=== PATIENT | male | born 1990 | race Caucasian/White ===

== ENCOUNTER 2018-07-30 10:21 | Inpatient (IN) | payer MEDICAID ==
[2018-07-30 10:27] VITALS: BMI 47.7
[2018-07-30] MEDS ORDERED: Insulin Regular 100 units/ml IVP ONE (10:46)
[2018-07-30] MEDS ORDERED: Sodium Chloride 0.9% 2,000 ML IV STA (10:46)
[2018-07-30] MEDS ORDERED: Insulin Regular 100 units/ml ONE (11:02)
--- NOTE | 2018-07-30 11:07 | RAD ---
Date of service: 07/30/2018 HISTORY: SOB COMPARISON: No prior. FINDINGS: LUNGS: No active pulmonary disease. PLEURA: No significant pleural effusion identified, no pneumothorax apparent. CARDIOVASCULAR: Normal. OSSEOUS STRUCTURES: No significant abnormalities. VISUALIZED UPPER ABDOMEN: Normal. OTHER FINDINGS: None. IMPRESSION: No active disease.
[2018-07-30 11:23] LABS: BASO # 0.1 K/uL (0.0-0.2); BASO % 0.7 % (0.0-2.0); HEMOGLOBIN 16.6 g/dL (12.0-18.0); LYMPH % 10.3 % (20.0-40.0); MEAN CELL VOLUME 83.4 fl (80.0-94.0); MEAN CORPUSCULAR HEMOGLOBIN 28.1 pg (27.0-31.0); MEAN CORPUSCULAR HGB CONC 33.7 g/dL (33.0-37.0); MEAN PLATELET VOLUME 8.3 fl (7.2-11.7); MONO # 0.5 K/uL (0.0-0.8); MONO % 4.6 % (0.0-10.0); NEUT # 8.5 K/uL (1.8-7.0); NEUT % 84.4 % (50.0-75.0); NRBC % 0.1 % (0.0-0.0); RBC 5.9 Mil/uL (4.40-5.90); RED CELL DISTRIBUTION WIDTH 15.6 % (11.5-14.5); WHITE BLOOD COUNT 10.1 K/uL (4.8-10.8)
[2018-07-30 11:34] LABS: RENAL EPITHELIAL < 1 /hpf (0-3); SQUAMOUS EPITHIAL < 1 /hpf (0-5); URINE BILIRUBIN NEGATIVE (NEGATIVE); URINE BLOOD SMALL (NEGATIVE); URINE CLARITY CLEAR (Clear); URINE COLOR STRAW (YELLOW); URINE GLUCOSE (UA) >=500 mg/dL (Normal); URINE LEUKOCYTE ESTERASE NEG Leu/uL (Negative); URINE PROTEIN 100 mg/dL (NEGATIVE); URINE UROBILINOGEN 0.2-1.0 mg/dL (0.2-1.0)
[2018-07-30 11:42] LABS: VENOUS BLOOD GAS BASE EXCESS -21.7 mmol/L (0.0-2.0); VENOUS BLOOD GAS PCO2 24 mmHg (40-60); VENOUS BLOOD GAS PO2 29 mm/Hg (30-55); VENOUS BLOOD PH 7.07 (7.32-7.43)
[2018-07-30] MEDS ORDERED: Glucagon Recombinant 1 mg Inj IM PRN (12:01)
[2018-07-30] MEDS ORDERED: Dextrose 50% SYRINGE Inj (50 ml) IV PRN (12:01)
[2018-07-30 12:04] LABS: ALB/GLOB RATIO 1.1 (1.0-2.1); ALBUMIN 4.2 g/dL (3.5-5.0); ALT/SGPT 22 U/L (21-72); AST/SGOT 18 U/L (17-59); BLOOD UREA NITROGEN 8 mg/dl (9-20); CALCIUM 8.1 mg/dL (8.4-10.2); GFR NON-AFRICAN AMERICAN > 60
[2018-07-30 12:08] LABS: BARBITURATES, UR NEGATIVE (NEGATIVE); BENZODIAZEPINES, UR NEGATIVE (NEGATIVE); OPIATES, UR NEGATIVE (NEGATIVE); PHENCYCLIDINE, UR NEGATIVE (NEGATIVE)
--- NOTE | 2018-07-30 12:25 | ED PDOC ---
HPI: Chest Pain Time Seen by Provider: 07/30/18 10:39 Chief Complaint (Nursing): Chest Pain Chief Complaint (Provider): chest pain, vomiting, dizziness History Per: Patient History/Exam Limitations: clinical condition (poor historian) Onset/Duration Of Symptoms: Gradual (3) Current Symptoms Are (Timing): Still Present Severity: Severe Quality: Burning, Tightness Associated Symptoms: Nausea Modifying Factors: Other Indicated Below Exacerbating Factors: Other Alleviating Factors: None Additional Complaint(s): 28yo male arrives via ALS with c/o chest pain, dizziness and vomiting overnight. States chest pain is burning, central to throat, he believes associated with vomiting. Admits to not having insulin for several days due to lack of insulin (?mail order didnt arrive). Denies recent illness, fever, dysuria, back pain, diarrhea or focal abdominal pain. Past Medical History Reviewed: Historical Data, Nursing Documentation, Vital Signs Vital Signs: Last Vital Signs Temp 97.9 F 08/01/18 11:42 Pulse 123 H 08/01/18 15:51 Resp 28 H 08/01/18 13:59 BP 134/97 H 08/01/18 13:59 Pulse Ox 98 08/01/18 15:51 - Medical History PMH: Asthma, Diabetes, HTN - Surgical History Surgical History: Tonsillectomy - Family History Family History: States: Unknown Family Hx - Living Arrangements Living Arrangements: With Family - Social History Current smoker - smoking cessation education provided: No - Home Medications Home Medications: Ambulatory Orders Medication Instructions Recorded Insulin Glargine,Hum.rec.anlog 24 unit SC DAILY 07/30/18 [Basaglar Fengpen U-100] Losartan [Cozaar] 50 mg PO DAILY 07/30/18 MetFORMIN [glucoPHAGE] 1,000 mg PO BID 07/30/18 Metoprolol Succinate XL [Toprol XL] 50 mg PO DAILY 07/30/18 Multivitamin [Multi-Vitamin Daily] 1 tab PO DAILY 07/30/18 Paliperidone Palmitate [Invega 234 mg IM Q30D 07/30/18 Sustenna] Rosuvastatin Calcium [Crestor] 10 mg PO DAILY 07/30/18 SITagliptin [Januvia] 50 mg PO DAILY 07/30/18 Sertraline [Zoloft] 200 mg PO DAILY 07/30/18 amLODIPine [Norvasc] 5 mg PO DAILY 07/30/18 buPROPion XL [Wellbutrin XL] 300 mg PO DAILY 07/30/18 - Allergies Allergies/Adverse Reactions: Allergies Allergy/AdvReac Type Severity Reaction Status Date / Time Penicillins Allergy RASH Verified 07/30/18 10:39 Review of Systems Constitutional: Positive for: Weakness, Malaise Cardiovascular: Positive for: Chest Pain, Palpitations, Light Headedness Respiratory: Negative for: Cough, Shortness of Breath Gastrointestinal: Positive for: Nausea, Vomiting. Negative for: Abdominal Pain , Diarrhea Genitourinary Male: Negative for: Dysuria, Hematuria Musculoskeletal: Negative for: Neck Pain, Arm Pain, Back Pain, Leg Pain Skin: Negative for: Rash, Lesions, Jaundice Neurological: Positive for: Headache, Dizziness. Negative for: Weakness, Numbness Psych: Negative for: Suicidal ideation Physical Exam - Reviewed Nursing Documentation Reviewed: Yes Vital Signs Reviewed: Yes - Physical Exam Appears: Positive for: Non-toxic (kussmaul resp) Head Exam: Positive for: ATRAUMATIC, NORMAL INSPECTION, NORMOCEPHALIC Skin: Positive for: Normal Color, Warm, DRY Eye Exam: Positive for: EOMI, Normal appearance, PERRL ENT: Positive for: Normal ENT Inspection Neck: Positive for: Normal, Painless ROM Cardiovascular/Chest: Positive for: Tachycardia Respiratory: Positive for: Normal Breath Sounds. Negative for: Decreased Breath Sounds Gastrointestinal/Abdominal: Positive for: Soft. Negative for: Tenderness Back: Positive for: Normal Inspection Extremity: Positive for: Normal ROM. Negative for: Tenderness, Deformity, Swelling Neurologic/Psych: Positive for: Alert, Oriented. Negative for: Motor/Sensory Deficits - Laboratory Results Result Diagrams: 07/31/18 04:40 08/01/18 11:04 - ECG ECG: Positive for: Interpreted By Tn ECG Rhythm: Positive for: Sinus Tachycardia, Nonspecific Changes Rate: 123 O2 Sat by Pulse Oximetry: 98 Pulse Ox Interpretation: Normal - Radiology X-Ray: Interpreted by Tn X-Ray Interpretation: No Acute Disease - Critical Care Total Time (In Min): 45 Medical Decision Making Medical Decision Making: initial diagnostics and clinical appearance concerning for acute DKA, likely secondary to noncompliance w meds/ ran out of insulin IVF bolus initiated, metabolics revealed elev AG with acidosis. Insulin drip initiated HR gradually improved, tachypnea improved Admit ICU d/w ICU and admitting team Disposition - Clinical Impression Clinical Impression: DKA (diabetic ketoacidoses) - Patient ED Disposition Is Patient to be Admitted: Yes - Disposition Disposition Time: 11:55 Condition: FAIR - Pt Status Changed To: Hospital Disposition Of: Inpatient - Admit Certification Admit to Inpatient:: After my assessment, the patient will require hospitalization for at least two midnights. This is because of the severity of symptoms shown, intensity of services needed, and/or the medical risk in this patient being treated as an outpatient. - POA Present On Arrival: Poor Glycemic Control
--- NOTE | 2018-07-30 13:20 | CP.PCM.HP ---
History of Present Illness - History of Present Illness History of Present Illness: 28 yo male with history of HTN, Asthma and newly diagnosed DM2 came in because of abdominal pain, vomiting, sorethroat, polyuria and polydipsia since yesterday. He claimed he was not able to inject himself with insulin for 3 days since he was not able to fill up his prescriptions. Denied having fever, chills or chest pain. Present on Admission - Present on Admission Any Indicators Present on Admission: No History of DVT/PE: No History of Uncontrolled Diabetes: No Urinary Catheter: No Decubitus Ulcer Present: No Review of Systems - Review of Systems All systems: reviewed and no additional remarkable complaints except (aside from those mentioned above, 12 point system review were negative by me) Past Patient History - Tetanus Immunizations Tetanus Immunization: Unknown - Past Social History Smoking Status: Former Smoker Chewing Tobacco Use: No Cigar Use: No Alcohol: None Drugs: Denies Home Situation {Lives}: With Family - CARDIAC Hx Hypertension: Yes - PULMONARY Hx Asthma: Yes - ENDOCRINE/METABOLIC Hx Diabetes Mellitus Type 2: Yes - PSYCHIATRIC Hx Substance Use: No - SURGICAL HISTORY Hx Tonsillectomy: Yes - ANESTHESIA Hx Anesthesia: Yes Hx Anesthesia Reactions: No Meds Allergies/Adverse Reactions: Allergies Allergy/AdvReac Type Severity Reaction Status Date / Time Penicillins Allergy RASH Verified 07/30/18 10:39 Physical Exam - Constitutional Appears: No Acute Distress, Other (obese) - Head Exam Head Exam: ATRAUMATIC - Eye Exam Eye Exam: absent: Scleral icterus - ENT Exam ENT Exam: Mucous Membranes Dry - Neck Exam Neck exam: Negative for: Meningismus - Respiratory Exam Respiratory Exam: absent: Rales, Rhonchi, Respiratory Distress - Cardiovascular Exam Cardiovascular Exam: Tachycardia - GI/Abdominal Exam GI & Abdominal Exam: Soft. absent: Tenderness - Rectal Exam Rectal Exam: Deferred - Extremities Exam Extremities exam: Negative for: calf tenderness, pedal edema - Back Exam Back exam: NORMAL INSPECTION - Neurological Exam Neurological exam: Alert, Oriented x3 - Psychiatric Exam Psychiatric exam: Normal Affect - Skin Skin Exam: Dry, Intact Results - Vital Signs Recent Vital Signs: Last Vital Signs Temp 97.9 F 07/30/18 10:27 Pulse 110 H 07/30/18 12:21 Resp 19 07/30/18 12:21 BP 128/66 07/30/18 12:21 Pulse Ox 98 07/30/18 12:37 - Labs Result Diagrams: 07/30/18 11:18 07/30/18 11:18 Labs: Laboratory Results - last 24 hr 07/30/18 07/30/18 07/30/18 11:18 11:18 11:18 WBC 10.1 RBC 5.90 Hgb 16.6 Hct 49.2 MCV 83.4 MCH 28.1 MCHC 33.7 RDW 15.6 H Plt Count 233 MPV 8.3 Neut % (Auto) 84.4 H Lymph % (Auto) 10.3 L Randall % (Auto) 4.6 Eos % (Auto) 0.0 Baso % (Auto) 0.7 Neut # (Auto) 8.5 H Lymph # (Auto) 1.0 Randall # (Auto) 0.5 Eos # (Auto) 0.0 Baso # (Auto) 0.1 pO2 VBG pH VBG pCO2 VBG HCO3 VBG Total CO2 VBG O2 Sat (Calc) VBG Base Excess VBG Potassium Glucose Lactate FiO2 Crit Value Called To Crit Value Called By Crit Value Read Back Blood Gas Notified Time Sodium 136 Potassium 3.6 Chloride 103 Carbon Dioxide 6 L* Anion Gap 31 H BUN 8 L Creatinine 0.9 Est GFR ( Amer) > 60 Est GFR (Non-Af Amer) > 60 Random Glucose 556 H* Calcium 8.1 L Total Bilirubin 0.5 AST 18 ALT 22 Alkaline Phosphatase 161 H Troponin I < 0.0120 Total Protein 7.9 Albumin 4.2 Globulin 3.7 Albumin/Globulin Ratio 1.1 Venous Blood Potassium Urine Color Urine Clarity Urine pH Ur Specific [place] Urine Protein Urine Glucose (UA) Urine Ketones Urine Blood Urine Nitrate Urine Bilirubin Urine Urobilinogen Ur Leukocyte Esterase Urine RBC (Auto) Urine Microscopic WBC Ur Squamous Epith Cells Ur Renal Epithelial Cell Urine Opiates Screen Negative Urine Methadone Screen Negative Ur Barbiturates Screen Negative Ur Phencyclidine Scrn Negative Ur Amphetamines Screen Negative U Benzodiazepines Scrn Negative U Oth Cocaine Metabols Negative U Cannabinoids Screen Negative Alcohol, Quantitative < 10 07/30/18 07/30/18 11:18 11:25 WBC RBC Hgb Hct MCV MCH MCHC RDW Plt Count MPV Neut % (Auto) Lymph % (Auto) Randall % (Auto) Eos % (Auto) Baso % (Auto) Neut # (Auto) Lymph # (Auto) Randall # (Auto) Eos # (Auto) Baso # (Auto) pO2 29 L VBG pH 7.07 L* VBG pCO2 24 L VBG HCO3 6.2 VBG Total CO2 7.7 L VBG O2 Sat (Calc) 60.8 VBG Base Excess -21.7 L VBG Potassium 3.6 Glucose 561 H* Lactate 1.7 FiO2 21.0 Crit Value Called To Dr olivia dumont Crit Value Called By 23 Crit Value Read Back Y Blood Gas Notified Time 1140 Sodium 132.0 Potassium Chloride 96.0 L Carbon Dioxide Anion Gap BUN Creatinine Est GFR ( Amer) Est GFR (Non-Af Amer) Random Glucose Calcium Total Bilirubin AST ALT Alkaline Phosphatase Troponin I Total Protein Albumin Globulin Albumin/Globulin Ratio Venous Blood Potassium 3.6 Urine Color Straw Urine Clarity Clear Urine pH 6.0 Ur Specific [place] 1.026 Urine Protein 100 Urine Glucose (UA) >=500 Urine Ketones 80 Urine Blood Small Urine Nitrate Negative Urine Bilirubin Negative Urine Urobilinogen 0.2-1.0 Ur Leukocyte Esterase Neg Urine RBC (Auto) 3 Urine Microscopic WBC 1 Ur Squamous Epith Cells < 1 Ur Renal Epithelial Cell < 1 Urine Opiates Screen Urine Methadone Screen Ur Barbiturates Screen Ur Phencyclidine Scrn Ur Amphetamines Screen U Benzodiazepines Scrn U Oth Cocaine Metabols U Cannabinoids Screen Alcohol, Quantitative Assessment & Plan - Assessment and Plan (Free Text) Assessment: 28 yo male with history of HTN, Asthma and newly diagnosed DM2 came in because of abdominal pain, vomiting, sorethroat, polyuria and polydipsia since yesterday. He claimed he was not able to inject himself with insulin for 3 days since he was not able to fill up his prescriptions. Denied having fever, chills or chest pain. 1. DKA acchuchek every 2 hrs continue Insulin drip 10 units/hr continue IV hydration 250cc/hr DC insulin drips when accuchek or BS goes down below 300 BS below 300, accuchek q 4hrs with moderate dose Lispro coverage BMP in 4 hrs endocrinology consult with Dr Funez 2. HTN BP stable will hold Amlodipine, Losartan and Metoprolol until DKA is controlled 3. Asthma asymptomatic 4. DVT prophylaxis Lovenox 40mg SC daily
[2018-07-30] MEDS: Sodium Chloride 0.9% 1,000 ML IV SCH ×2 (13:29→16:08)
[2018-07-30] MEDS ORDERED: Dextrose 5%/0.45% NS 1,000 ML IV SCH (17:30)
--- NOTE | 2018-07-30 18:32 | CP.CCUPN ---
CCU Subjective - Physician Review Subjective (Free Text): 28M admitted in DKA for the 1st time, newly dxed DM II starting 3 months ago, spent very short time on oral hypoglycemic and advanced to long-acting insulin as per PMD at 24 Units QD. Denies any other recent illness, otherwise , feels hungry, no other new discomfort, feels thirsty. Other vitals and I/O's reviewed: Afebrile, HR 104, 139/86, RR 30, 100% SPo2 on RA. ROS: No other pertinent negs or positives on 10+ system review obtainable from patient due to poorly responsive state. PMSFH: All other Nursing and physician documentation reviewed to date; no new pertinent info noted relevant to current medical problems. Allergies: penicillin SH; Non-employed, underwent special education classification in school, quit smoking 3 months ago, denies ETOH use. Home Meds: Invega, Norvasc, Wellbutrin, Cozaar, metformin, Toprol, MVI, Crestor , Zoloft, Januvia, Glargine insulin. EXAM- HEENT: no icterus, no gaze preference NECK: No JVD visible, supple, carotids equal upstroke bilat CHEST: decreased BS bases, no wheezes audible HEART: irregular, distant, S1S2, no rubs / murmurs ABD: soft, no increased distention, no tympany, no focal tenderness, BS hypoactive EXT: no peripheral/ digital cyanosis, no calf tenderness or palpable cords, distal pulses intact and symmetrical. NEURO: no gross focal deficits SKIN: no rashes, otherwise warm and dry. LABS: WBC= 10.1 HGB= 16.6 PLTs= 233K 7.07/ VBG SvO2= 60.8% lactate= 5.1 Vl=651 K= 3.6 CL= 103 HCO3= 6 BUN/Cr= 8/0.9 BS= 556 CXR: clear, no gross consolidation, no congestion (my interp). EKG: sinus tachy 123/min, no ischemic changes ( my interp) IMPRESSION / MAJOR PROBLEMS NOW: 1. DKA 2. New onset DM II 3. HTN 4. Obesity PLAN: 1. ICU monitoring as BS levels come under control. IVFs and insulin drip until anion gap normalizes. Check repeat K, Mg, Phos. Endocrinology eval, last HGB A1c as known by patient is 8.5% CCU Objective - Vital Signs / Intake & Output Vital Signs (Last 4 hours): Vital Signs Temp Pulse Resp BP Pulse Ox 07/30/18 18:00 104 H 30 H 139/86 100 07/30/18 17:00 105 H 35 H 131/75 98 07/30/18 16:00 98 F 108 H 38 H 133/69 100 07/30/18 15:32 120 H 28 H 143/83 100 07/30/18 15:21 36 H 100 07/30/18 15:10 98.2 F 114 H 34 H 132/84 100 07/30/18 14:50 97 F L 78 19 128/78 98 07/30/18 14:47 97.8 F 19 130/70 Intake and Output (Last 8hrs): Intake & Output 07/30/18 07/30/18 07/30/18 06:59 14:59 22:59 Intake Total 750 Output Total 750 Balance 0 Weight 342 lb 319 lb Intake: IV 750 Output: Urine 750 Urine, Voided 750
[2018-07-30] MEDS: Potassium Ch 20mEq in D5-1/2NS 1,000 ML IV SCH ×2 (18:40→23:00)
[2018-07-30 22:30] LABS: BLOOD UREA NITROGEN 5 mg/dl (9-20); GFR NON-AFRICAN AMERICAN > 60
--- NOTE | 2018-07-30 22:48 | CARD ---
APPROVED REPORT Date of service: 07/30/2018 EKG Measurement Heart [id number] <Conclusion> Sinus tachycardia Otherwise normal ECG
[2018-07-30] MEDS ORDERED: Potassium Phosphate 30 MMOLE in Sodium Chloride 0.9% 250 ML IV ONE (23:02)
--- NOTE | 2018-07-31 03:30 | CON ---
Copied To: Kenzie Funez MD Attending MD: Kenzie Funez MD DATE: 07/30/2018 ENDOCRINOLOGY CONSULT LOCATION: ICU, room 428. HISTORY OF PRESENT ILLNESS: This is a 28-year-old male with known history of type 1 insulin-dependent diabetes who apparently ran out of his insulin supplies and presented here with chest pain and progressive dizziness and lightheadedness with supervening intractable vomiting and has been evaluated to be in diabetic ketoacidosis and dehydration and is being referred now for diabetic evaluation and management. He apparently ran out of his insulin supplies as his mail order did not come in time as noted. PAST MEDICAL HISTORY: History of type 1 insulin-dependent diabetes, currently on a combination of taken as 24 units subcu daily with Januvia given as 50 mg daily and metformin as 1000 mg b.i.d.; history of hypertension and dyslipidemia; history of chronic bronchial asthma. FAMILY HISTORY: Positive for hypertension and diabetes. SOCIAL HISTORY The patient has a supportive family. No known substance use. REVIEW OF SYSTEMS Admits to generalized body weakness with progressive bouts of dizziness and lightheadedness and visual blurring with bifrontal headaches. Admits to precordial chest pain as mentioned with progressive shortness of of breath, especially on exertion. His oral intake has been variable with nausea, dyspepsia, and intractable vomiting episodes with marked polyuria, nocturia, and polydipsia. PHYSICAL EXAMINATION: GENERAL: This is an obese male in no apparent distress. VITAL SIGNS: Blood pressure of 140/80, pulse of 100 beats per minute and regular, temperature 98, respirations 20, height is 5 feet 11 inches, weight is 342 pounds. HEENT: Head normocephalic. Eyes anicteric with pink conjunctivae. Funduscopy not possible at this time. Ears, nose and throat, otherwise, normal. NECK: Supple. Thyroid gland is normal in size. No carotid bruits or cervical adenopathy. CARDIOPULMONARY: Some adynamic precordium. S1, S2 rapid and regular. LUNGS: Clear to auscultation. ABDOMEN: Obese, soft with positive bowel sounds. EXTREMITIES: No peripheral edema. Pulses are +2 bilaterally. LABORATORY DATA: His initial chemistries showed a BUN of 8, sodium 136, potassium 3.6, chloride 103, CO2 is 6, glucose is 556, and creatinine is 0.9. ASSESSMENT: This is a 28-year-old male with apparent known history of type 2 diabetes, presenting here with metabolic behavioral pattern, typical of type 1 diabetes with diabetic ketoacidosis and dehydration as noted thereof. He also has underlying super morbid obesity which is contributing to increased insulin resistance and further impaired glucose tolerance thereof. PLAN OF MANAGEMENT: We will continue the insulin drip infusion with intensive insulin therapy given via an insulin drip with hourly fingersticks to be undertaken and Humalog insulin and regular insulin drip as given continuously. We will also continue the vigorous IV hydration with normal saline running at 200 mL/hour to replenish his lost fluid and electrolyte levels noted. We will obtain serial chemistries and supplement accordingly needed. Improve the CO2 to at least above 18 to 20, then we can safely switch him over to a more physiologic basal and bolus insulin drug combination as indicated, and we will discontinue the insulin drip accordingly. We will continue the vigorous IV hydration with normal saline running at 200 mL/hour as ordered. We will obtain serial chemistries and supplement accordingly needed. We will also add a serum cortisol and baseline thyroid studies as ordered. We will follow up. Kenzie Funez MD
[2018-07-31] MEDS ORDERED: Alum-Mag Hydrox-Simethicone Susp (30 mL) PO ONE (04:10)
[2018-07-31 05:33] LABS: BASO # 0.1 K/uL (0.0-0.2); BASO % 0.8 % (0.0-2.0); EOS % 0.5 % (0.0-4.0); HEMOGLOBIN 14.9 g/dL (12.0-18.0); LYMPH # 1.2 K/uL (1.0-4.3); LYMPH % 16.3 % (20.0-40.0); MEAN CELL VOLUME 82.1 fl (80.0-94.0); MEAN CORPUSCULAR HGB CONC 34.1 g/dL (33.0-37.0); MONO # 0.6 K/uL (0.0-0.8); MONO % 8.8 % (0.0-10.0); NEUT # 5.3 K/uL (1.8-7.0); NEUT % 73.6 % (50.0-75.0); NRBC % 0.4 % (0.0-0.0); RBC 5.3 Mil/uL (4.40-5.90); RED CELL DISTRIBUTION WIDTH 15.4 % (11.5-14.5); WHITE BLOOD COUNT 7.2 K/uL (4.8-10.8)
[2018-07-31 05:44] LABS: LDL CHOLESTEROL 134 mg/dL (0-129)
[2018-07-31 06:19] LABS: ALB/GLOB RATIO 1.2 (1.0-2.1); ALBUMIN 3.6 g/dL (3.5-5.0); BLOOD UREA NITROGEN 5 mg/dl (9-20); CALCIUM 8.2 mg/dL (8.4-10.2); GFR NON-AFRICAN AMERICAN > 60
[2018-07-31 06:20] LABS: ALT/SGPT 22 U/L (21-72); AST/SGOT 14 U/L (17-59); HDL CHOLESTEROL 23 MG/DL (30-70)
[2018-07-31] MEDS ORDERED: Potassium Chloride 20 mEq/15 ml LIQ UD PO ONE ×3 (06:53→19:30)
[2018-07-31] MEDS: Potassium CL 10mEq/100ml 100 ML IVPB SCH ×4 (07:32→10:59)
[2018-07-31] MEDS: Potassium Ch 20mEq in D5-1/2NS 1,000 ML IV SCH ×2 (07:39→15:37)
[2018-07-31] MEDS ORDERED: Pneumococcal 23-Valent Vaccine IM ONE (07:48)
[2018-07-31] MEDS: Enoxaparin 40 mg Syringe SC SCH (08:22)
--- NOTE | 2018-07-31 08:40 | CP.CCUPN ---
CCU Subjective - Physician Review Subjective (Free Text): Fells weak, but was able to get OOB to chair, on Insulin at 4 units/hr, and IVF at 200ml/hr. Otherwise, nondistressed and intact neuromental status. Other vitals and I/O's reviewed: ROS: No other pertinent negs or positives on 10+ system review. PMSFH: All other Nursing and physician documentation reviewed to date; no new pertinent info noted relevant to current medical problems. Allergies: penicillin SH; Non-employed, underwent special education classification in school, quit smoking 3 months ago, denies ETOH use. Home Meds: Invega, Norvasc, Wellbutrin, Cozaar, metformin, Toprol, MVI, Crestor , Zoloft, Januvia, Glargine insulin. EXAM- HEENT: no icterus, no gaze preference NECK: No JVD visible, supple, carotids equal upstroke bilat CHEST: decreased BS bases, no wheezes audible HEART: irregular, distant, S1S2, no rubs / murmurs ABD: soft, no increased distention, no tympany, no focal tenderness, BS hypoactive EXT: no peripheral/ digital cyanosis, no calf tenderness or palpable cords, distal pulses intact and symmetrical. NEURO: no gross focal deficits SKIN: no rashes, otherwise warm and dry. LABS: WBC= 7.2 HGB= 14.9 PLTs= 201K Ca=978 K= 2.8 CL= 114 HCO3= 11 BUN/Cr= 5/0.7 BS= 274 IMPRESSION / MAJOR PROBLEMS NOW: 1. DKA 2. New onset DM II 3. HTN 4. Obesity PLAN: 1. Ongoing IVFs and insulin drip, serum bicarb has not yet normalized. 2. K and phosphate repletion 3. Endocrine eval already ordered. 4. PO diet started. CCU Objective - Vital Signs / Intake & Output Vital Signs (Last 4 hours): Vital Signs Temp Pulse Resp BP Pulse Ox 07/31/18 08:00 98.4 F 119 H 25 H 128/66 99 07/31/18 06:00 104 H 25 H 127/70 94 L 07/31/18 05:00 105 H 28 H 133/56 L 99 Intake and Output (Last 8hrs): Intake & Output 07/30/18 07/31/18 07/31/18 22:59 06:59 14:59 Intake Total 1250 1600 60 Output Total 1500 1600 800 Balance -250 0 -740 Weight 319 lb Intake: IV 1100 1400 Oral 150 200 60 Output: Urine 1500 800 800 Urine, Voided 1500 800 800 Stool 800 Critical Care Progress Note - Nutrition Nutrition: .
[2018-07-31] MEDS ORDERED: Metoprolol Succinate 50 mg XL Tab PO SCH (09:00)
--- NOTE | 2018-07-31 11:49 | CP.PCM.PN ---
<Larry Toro - Last Filed: 07/31/18 16:56> Subjective - Date & Time of Evaluation Date of Evaluation: 07/31/18 Time of Evaluation: 11:46 - Subjective Subjective: Patient lying in bed, appears uncomfortable complaining of nausea. No appetite, no abdominal pain. No bowel movement for past 3 days. No fevers, night sweats or chills. Breathing unlabored. Objective - Vital Signs/Intake and Output Vital Signs (last 24 hours): Temp Pulse Resp BP Pulse Ox 98.4 F 98 H 22 124/68 98 07/31/18 08:00 07/31/18 10:00 07/31/18 10:00 07/31/18 10:00 07/31/18 10:00 Intake and Output: 07/31/18 07/31/18 06:59 18:59 Intake Total 2100 100 Output Total 2350 800 Balance -250 -700 - Medications Medications: Current Medications Dextrose (Dextrose 50% Inj) 0 ml IV STAT PRN; Protocol PRN Reason: Hypoglycemia Protocol Dextrose (Glutose 15) 0 gm PO ONCE PRN; Protocol PRN Reason: Hypoglycemia Protocol Enoxaparin Sodium (Lovenox) 40 mg SC DAILY [facility] PRN Reason: Protocol Last Admin: 07/31/18 08:22 Dose: 40 mg Glucagon (Glucagen Diagnostic Kit) 0 mg IM STAT PRN; Protocol PRN Reason: Hypoglycemia Protocol Insulin Human Regular 100 (units/ Sodium Chloride) 101 mls @ 10.1 mls/hr IV .Q10H [facility]; 10 UNITS/HR PRN Reason: Protocol Last Titration: 07/31/18 10:11 Dose: 6 units/hr, 6.06 mls/hr Potassium Chloride/Dextrose/Sod Cl (Potassium Chl 20 Meq In D5-1/2ns) 1,000 mls @ 200 mls/hr IV .Q5H [facility] Stop: 07/31/18 17:24 Last Admin: 07/31/18 07:39 Dose: 200 mls/hr Ondansetron HCl (Zofran Inj) 4 mg IVP Q6H PRN PRN Reason: Nausea/Vomiting Pantoprazole Sodium (Protonix Inj) 40 mg IVP DAILY [facility] Last Admin: 07/31/18 08:24 Dose: 40 mg - Labs Labs: 07/31/18 04:40 07/31/18 04:40 - Constitutional Appears: No Acute Distress - Head Exam Head Exam: ATRAUMATIC, NORMAL INSPECTION, NORMOCEPHALIC - Eye Exam Eye Exam: Normal appearance - Respiratory Exam Respiratory Exam: Clear to Ausculation Bilateral, NORMAL BREATHING PATTERN. absent: Prolonged Expiratory Phase, Respiratory Distress - Cardiovascular Exam Cardiovascular Exam: REGULAR RHYTHM, +S1, +S2. absent: Murmur - GI/Abdominal Exam GI & Abdominal Exam: Soft, Hypoactive Bowel Sounds. absent: Distended, Guarding , Tenderness - Extremities Exam Extremities Exam: Normal Inspection. absent: Pedal Edema - Neurological Exam Neurological Exam: Alert, Awake - Skin Skin Exam: Dry, Intact, Normal Color Assessment and Plan - Assessment and Plan (Free Text) Assessment: 28 yo male with history of HTN, Asthma and newly diagnosed DM2 came in because of abdominal pain, vomiting, sorethroat, polyuria and polydipsia since yesterday admitted for DKA. He claimed he was not able to inject himself with insulin for 3 days since he was not able to fill up his prescriptions. No night sweats, fevers, chills. C/o nausea, without vomiting. #. DKA anion gap 15 hga1c: 14.7 acchuchek every 2 hrs continue Insulin drip 10 units/hr continue IV hydration : d/c NS 250cc/hr start D5 1/2 NS with K+ 20meq will d/c insulin drip once anion gap closed once BS below 300, accuchek q 4hrs with moderate dose Lispro coverage repeat BMP in afternoon endocrinology consult with Dr Funez #.Hypokalemia -due to acidosis -IV and PO potassium -recheck BMP in afternoon #. HTN BP stable will hold Amlodipine, Losartan and Metoprolol until DKA is controlled 3. Asthma asymptomatic 4. DVT prophylaxis Lovenox 40mg SC daily <Erendira Chang - Last Filed: 07/31/18 17:38> Objective - Vital Signs/Intake and Output Vital Signs (last 24 hours): Temp Pulse Resp BP Pulse Ox 97.5 F L 99 H 18 140/76 98 07/31/18 16:00 07/31/18 16:00 07/31/18 16:00 07/31/18 16:00 07/31/18 16:00 Intake and Output: 07/31/18 07/31/18 06:59 18:59 Intake Total 2100 763 Output Total 6053 1999 Balance -994 -1440 - Medications Medications: Current Medications Dextrose (Dextrose 50% Inj) 0 ml IV STAT PRN; Protocol PRN Reason: Hypoglycemia Protocol Dextrose (Glutose 15) 0 gm PO ONCE PRN; Protocol PRN Reason: Hypoglycemia Protocol Enoxaparin Sodium (Lovenox) 40 mg SC DAILY [facility] PRN Reason: Protocol Last Admin: 07/31/18 08:22 Dose: 40 mg Glucagon (Glucagen Diagnostic Kit) 0 mg IM STAT PRN; Protocol PRN Reason: Hypoglycemia Protocol Insulin Human Regular 100 (units/ Sodium Chloride) 101 mls @ 10.1 mls/hr IV .Q10H [facility]; 10 UNITS/HR PRN Reason: Protocol Last Titration: 07/31/18 17:05 Dose: 6 units/hr, 6.06 mls/hr Potassium Phosphate 30 mmole/ (Dextrose) 260 mls @ 84 mls/hr IV .Q3H6M ONE Stop: 07/31/18 19:31 Ondansetron HCl (Zofran Inj) 4 mg IVP Q6H PRN PRN Reason: Nausea/Vomiting Pantoprazole Sodium (Protonix Inj) 40 mg IVP DAILY [facility] Last Admin: 07/31/18 08:24 Dose: 40 mg Potassium Chloride (Potassium Chloride Oral Soln) 20 meq PO ONCE ONE Stop: 07/31/18 19:31 - Labs Labs: 07/31/18 04:40 07/31/18 15:00 Attending/Attestation - Attestation I have personally seen and examined this patient.: Yes I have fully participated in the care of the patient.: Yes I have reviewed all pertinent clinical information, including history, physical exam and plan: Yes Notes (Text): 07/31/18 17:38 Seen, examined, and discussed with residents Dr. Toro. Agree with findings and plan as above.
[2018-07-31 16:15] LABS: BLOOD UREA NITROGEN 3 mg/dl (9-20); CALCIUM 8.4 mg/dL (8.4-10.2); GFR NON-AFRICAN AMERICAN > 60
[2018-07-31] MEDS ORDERED: Potassium Phosphate 30 MMOLE in Dextrose 5% In Water 250 ML IV ONE (16:26)
[2018-07-31 21:12] LABS: BLOOD UREA NITROGEN 3 mg/dl (9-20); CALCIUM 8.3 mg/dL (8.4-10.2); GFR NON-AFRICAN AMERICAN > 60
--- NOTE | 2018-07-31 21:33 | PN ---
Copied To: Kenzie Funez MD Attending MD: Kenzie Funez MD DATE: 07/31/2018 This is a 28-year-old male with recent uncontrolled type 1 insulin-dependent diabetes, presenting here with diabetic ketoacidosis and dehydration and is now being followed closely for metabolic management. As per the nursing staff, he has had marked dietary indiscretion with intake of [place] food and other goodies from home as brought in by the grandmother over the last 24 hours or so. His glycemic levels are fluctuating, ranging from 285 to 336 mg/dL. His latest chemistry showed a BUN of 3, sodium 136, potassium 3, chloride 110, CO2 of 10, glucose is 366, and creatinine 0.7. So at this time, we will continue the insulin drip infusion and titrate to a higher algorithm to DKA algorithm II, and we will discuss with the nursing staff accordingly. We will continue the vigorous IV hydration with half-normal saline with potassium supplementation running at 200 mL/hour as ordered. We will obtain serial chemistries and supplement accordingly as needed. We will follow and advised accordingly. Kenzie Funez MD
[2018-08-01] MEDS ORDERED: Potassium Chloride 20 MEQ in Sodium Chloride 0.45% 1,000 ML IV SCH (00:15)
[2018-08-01] MEDS: Potassium Chl 20 mEq in NS 1,000 ML IV SCH ×3 (00:30→23:02)
[2018-08-01 06:56] LABS: ALB/GLOB RATIO 1.2 (1.0-2.1); ALBUMIN 3.4 g/dL (3.5-5.0); ALT/SGPT 23 U/L (21-72); AST/SGOT 16 U/L (17-59); BLOOD UREA NITROGEN 2 mg/dl (9-20); CALCIUM 8.5 mg/dL (8.4-10.2); GFR NON-AFRICAN AMERICAN > 60
[2018-08-01] MEDS ORDERED: Potassium Chloride 20 mEq ER Tab PO ONE (07:32)
--- NOTE | 2018-08-01 08:02 | CP.PCM.PN ---
<Larry Toro - Last Filed: 08/01/18 10:38> Subjective - Date & Time of Evaluation Date of Evaluation: 08/01/18 Time of Evaluation: 07:45 - Subjective Subjective: Overnight K+: 2.8 This AM: K+ 2.4 EKG, potassium ordered stat Patient lying in bed comfortably. No complaints offered. Tolerating diet. Anion gap now 11, will d/c insulin drip Objective - Vital Signs/Intake and Output Vital Signs (last 24 hours): Temp Pulse Resp BP Pulse Ox 98.4 F 91 H 24 126/57 L 93 L 08/01/18 04:00 08/01/18 06:00 08/01/18 06:00 08/01/18 06:00 08/01/18 06:00 Intake and Output: 08/01/18 08/01/18 06:59 18:59 Output Total 450 Balance -450 - Medications Medications: Current Medications Dextrose (Dextrose 50% Inj) 0 ml IV STAT PRN; Protocol PRN Reason: Hypoglycemia Protocol Dextrose (Glutose 15) 0 gm PO ONCE PRN; Protocol PRN Reason: Hypoglycemia Protocol Enoxaparin Sodium (Lovenox) 40 mg SC DAILY [facility] PRN Reason: Protocol Last Admin: 07/31/18 08:22 Dose: 40 mg Glucagon (Glucagen Diagnostic Kit) 0 mg IM STAT PRN; Protocol PRN Reason: Hypoglycemia Protocol Insulin Human Regular 100 (units/ Sodium Chloride) 101 mls @ 10.1 mls/hr IV .Q10H [facility]; 10 UNITS/HR PRN Reason: Protocol Last Titration: 07/31/18 17:05 Dose: 6 units/hr, 6.06 mls/hr Potassium Chloride/Sodium Chloride (Potassium Chl 20 Meq In Ns) 1,000 mls @ 200 mls/hr IV .Q5H [facility] Stop: 08/02/18 00:16 Last Admin: 08/01/18 00:30 Dose: 200 mls/hr Potassium Chloride (Potassium Chloride 10 Meq/100 Ml) 100 mls @ 100 mls/hr IVPB Q1 [facility] Stop: 08/01/18 11:59 Ondansetron HCl (Zofran Inj) 4 mg IVP Q6H PRN PRN Reason: Nausea/Vomiting Pantoprazole Sodium (Protonix Inj) 40 mg IVP DAILY [facility] Last Admin: 07/31/18 08:24 Dose: 40 mg - Labs Labs: 07/31/18 04:40 08/01/18 04:40 - Constitutional Appears: Non-toxic, No Acute Distress (morbid obese) - Head Exam Head Exam: ATRAUMATIC, NORMAL INSPECTION, NORMOCEPHALIC - Eye Exam Eye Exam: Normal appearance - Respiratory Exam Respiratory Exam: NORMAL BREATHING PATTERN - Cardiovascular Exam Cardiovascular Exam: REGULAR RHYTHM, +S1, +S2 - GI/Abdominal Exam GI & Abdominal Exam: Soft (no distention, no tenderness) - Extremities Exam Extremities Exam: Normal Inspection (no pedal edema) - Neurological Exam Neurological Exam: Alert, Awake - Skin Skin Exam: Dry, Intact, Normal Color, Warm Assessment and Plan - Assessment and Plan (Free Text) Plan: 28 yo male with history of HTN, Asthma and newly diagnosed DM2 came in because of abdominal pain, vomiting, sorethroat, polyuria and polydipsia since yesterday admitted for DKA. He claimed he was not able to inject himself with insulin for 3 days since he was not able to fill up his prescriptions. No night sweats, fevers, chills, no nausea, no vomiting. Severe Hypokalemia of 2.4 with prolonged QT, potassium repletion ordered will recheck BMP. #. DKA anion gap 11 down from 15 yesterday. hga1c: 14.7 acchuchek every 2 hrs discontinue Insulin drip, start insulin coverage continue D5 1/2 NS with K+ 20meq hypokalemia - repeat BMP this AM after potassium given ; EKG prolonged qt endocrinology consult with Dr Funez #. HTN BP stable will hold Amlodipine, Losartan and Metoprolol until DKA is controlled 3. Asthma asymptomatic 4. DVT prophylaxis Lovenox 40mg SC daily <Erendira Chang - Last Filed: 08/01/18 18:13> Objective - Vital Signs/Intake and Output Vital Signs (last 24 hours): Temp Pulse Resp BP Pulse Ox 98.7 F 102 H 24 132/76 93 L 08/01/18 16:00 08/01/18 18:00 08/01/18 18:00 08/01/18 18:00 08/01/18 18:00 Intake and Output: 08/01/18 08/01/18 06:59 18:59 Intake Total 3204 Output Total 450 1300 Balance -450 1904 - Medications Medications: Current Medications Bupropion HCl (Wellbutrin) 150 mg PO BID [facility] Last Admin: 08/01/18 17:23 Dose: 150 mg Dextrose (Dextrose 50% Inj) 0 ml IV STAT PRN; Protocol PRN Reason: Hypoglycemia Protocol Dextrose (Glutose 15) 0 gm PO ONCE PRN; Protocol PRN Reason: Hypoglycemia Protocol Enoxaparin Sodium (Lovenox) 40 mg SC DAILY [facility] PRN Reason: Protocol Last Admin: 08/01/18 09:56 Dose: 40 mg Glucagon (Glucagen Diagnostic Kit) 0 mg IM STAT PRN; Protocol PRN Reason: Hypoglycemia Protocol Potassium Chloride/Sodium Chloride (Potassium Chl 20 Meq In Ns) 1,000 mls @ 200 mls/hr IV .Q5H [facility] Stop: 08/02/18 00:16 Last Admin: 08/01/18 13:00 Dose: 200 mls/hr Insulin Detemir (Levemir) 24 units SC DAILY [facility] Last Admin: 08/01/18 17:07 Dose: 24 units Insulin Human Lispro (Humalog) 0 units SC ACHS [facility] PRN Reason: Protocol Last Admin: 08/01/18 17:06 Dose: 4 units Ondansetron HCl (Zofran Inj) 4 mg IVP Q6H PRN PRN Reason: Nausea/Vomiting Pantoprazole Sodium (Protonix Inj) 40 mg IVP DAILY [facility] Last Admin: 08/01/18 09:58 Dose: 40 mg Sitagliptin Phosphate (Januvia) 50 mg PO DAILY [facility] Last Admin: 08/01/18 14:30 Dose: 50 mg - Labs Labs: 07/31/18 04:40 08/01/18 16:00 Attending/Attestation - Attestation I have personally seen and examined this patient.: Yes I have fully participated in the care of the patient.: Yes I have reviewed all pertinent clinical information, including history, physical exam and plan: Yes Notes (Text): 08/01/18 18:13 Seen, examined, and discussed with residents Drs. Toro and Ji. Agree with findings and plan as above.
--- NOTE | 2018-08-01 09:47 | CARD ---
APPROVED REPORT Date of service: 08/01/2018 EKG Measurement Heart [id number] <Conclusion> Normal sinus rhythm Prolonged QT NST wave abnormality Abnormal ECG
[2018-08-01] MEDS: Enoxaparin 40 mg Syringe SC SCH (09:56)
[2018-08-01] MEDS: Potassium CL 10mEq/100ml 100 ML IVPB SCH ×4 (09:57→14:06)
[2018-08-01 11:29] LABS: BLOOD UREA NITROGEN 2 mg/dl (9-20); CALCIUM 8.6 mg/dL (8.4-10.2); GFR NON-AFRICAN AMERICAN > 60
--- NOTE | 2018-08-01 13:13 | CP.CCUPN ---
CCU Subjective - Physician Review Subjective (Free Text): Awake and alert, still feels a bit weal, no focal motor deficits. Otherwise, nondistressed and intact neuromental status. Other vitals and I/O's reviewed: slight;y negative fluid balance noted. No fever spikes. ROS: No other pertinent negs or positives on 10+ system review. PMSFH: All other Nursing and physician documentation reviewed to date; no new pertinent info noted relevant to current medical problems. Allergies: penicillin SH; Non-employed, underwent special education classification in school, quit smoking 3 months ago, denies ETOH use. Home Meds: Invega, Norvasc, Wellbutrin, Cozaar, metformin, Toprol, MVI, Crestor , Zoloft, Januvia, Glargine insulin. EXAM- HEENT: no icterus, no gaze preference NECK: No JVD visible, supple, carotids equal upstroke bilat CHEST: decreased BS bases, no wheezes audible HEART: irregular, distant, S1S2, no rubs / murmurs ABD: soft, no increased distention, no tympany, no focal tenderness, BS hypoactive EXT: no peripheral/ digital cyanosis, no calf tenderness or palpable cords, distal pulses intact and symmetrical. NEURO: no gross focal deficits SKIN: no rashes, otherwise warm and dry. LABS: WBC= 7.2 HGB= 14.9 PLTs= 201K Vq=285 K= 2.8 CL= 109 HCO3= 18 BUN/Cr= 2/0.7 BS= 276 IMPRESSION / MAJOR PROBLEMS NOW: 1. DKA 2. New onset DM II 3. HTN 4. Obesity PLAN: 1. Ongoing IVFs and insulin drip, serum bicarb has improved and almost normalized. 2. K and phosphate repletion 3. Endocrine eval orders noted. CCU Objective - Vital Signs / Intake & Output Vital Signs (Last 4 hours): Vital Signs Temp Pulse Resp BP Pulse Ox 08/01/18 12:00 88 19 117/79 99 08/01/18 11:42 97.9 F 08/01/18 10:00 114 H 25 H 122/70 97 Intake and Output (Last 8hrs): Intake & Output 07/31/18 08/01/18 08/01/18 22:59 06:59 14:59 Intake Total 2058 540 Output Total 1250 700 Balance 808 -160 Intake: IV 1803 0 Intake, Piggyback 300 Oral 255 240 Output: Urine 1250 700 Urine, Voided 1250 700 Other: # Bowel Movements 0
[2018-08-01] MEDS ORDERED: Potassium Chloride 20 mEq/15 ml LIQ UD PO ONE ×2 (13:30→19:25)
[2018-08-01 16:53] LABS: BLOOD UREA NITROGEN 2 mg/dl (9-20); CALCIUM 8.8 mg/dL (8.4-10.2); GFR NON-AFRICAN AMERICAN > 60
[2018-08-01] MEDS: Insulin Lispro (humaLOG) 100 Units/ml Inj SC SCH ×2 (17:06→22:20)
[2018-08-01] MEDS: Insulin Detemir 100 Units/ml Inj SC SCH (17:07)
[2018-08-01 19:46] LABS: BLOOD UREA NITROGEN 2 mg/dl (9-20); CALCIUM 8.6 mg/dL (8.4-10.2); GFR NON-AFRICAN AMERICAN > 60
[2018-08-02] MEDS ORDERED: Insulin Detemir 100 Units/ml Inj SC STA (00:12)
--- NOTE | 2018-08-02 03:13 | PN ---
Copied To: Kenzie Funez MD Attending MD: DATE: 08/01/2018 LOCATION: In ICU room 428. SUBJECTIVE: This is a 28-year-old male with recent uncontrolled type 1 insulin-dependent diabetes presenting here with diabetic ketoacidosis and dehydration and is currently still on an insulin pump from early this morning with the latest glucose values ranging from 207-272 mg/dL. LABORATORY DATA: His latest chemistry showed a BUN of 2, sodium 138, potassium 2.8, chloride 109, CO2 18, glucose 276 and creatinine 0.7. ASSESSMENT AND PLAN: So at this time, we will continue the insulin drip infusion for a few more hours and then switch him over to a more physiologic basal and bolus insulin drug combination as indicated. We will continue the vigorous IV hydration with half-normal saline running at 200 mL/hour as given. We will obtain serial chemistries and supplement accordingly as needed. We will also continue the potassium supplementation given initially parenterally or IV followed by oral supplements as indicated. We will follow and advise accordingly. Kenzie Funez MD
[2018-08-02] MEDS ORDERED: Potassium Chl 20 mEq in NS 1,000 ML IV SCH (04:30)
[2018-08-02 05:52] LABS: HEMOGLOBIN 14.2 g/dL (12.0-18.0); MEAN CELL VOLUME 80.2 fl (80.0-94.0); MEAN CORPUSCULAR HGB CONC 34.9 g/dL (33.0-37.0); RBC 5.08 Mil/uL (4.40-5.90); RED CELL DISTRIBUTION WIDTH 15.7 % (11.5-14.5); WHITE BLOOD COUNT 6.4 K/uL (4.8-10.8)
[2018-08-02 06:07] LABS: ALB/GLOB RATIO 1.2 (1.0-2.1); ALBUMIN 3.4 g/dL (3.5-5.0); ALT/SGPT 25 U/L (21-72); AST/SGOT 16 U/L (17-59); BLOOD UREA NITROGEN 2 mg/dl (9-20); CALCIUM 8.9 mg/dL (8.4-10.2); GFR NON-AFRICAN AMERICAN > 60
[2018-08-02] MEDS: Insulin Lispro (humaLOG) 100 Units/ml Inj SC SCH ×6 (06:37→22:30)
[2018-08-02] MEDS ORDERED: Insulin Lispro (humaLOG) 100 Units/ml Inj SC SCH (07:30)
[2018-08-02] MEDS ORDERED: Potassium Chloride 20 mEq/15 ml LIQ UD PO ONE (07:33)
[2018-08-02] MEDS ORDERED: KCL 40MEQ/NS 1L 1,000 ML IV SCH (07:45)
[2018-08-02] MEDS: Insulin Detemir 100 Units/ml Inj SC SCH (08:13)
[2018-08-02] MEDS: Enoxaparin 40 mg Syringe SC SCH (08:27)
[2018-08-02] MEDS ORDERED: Potassium Chloride 20 mEq ER Tab PO SCH (10:00)
[2018-08-02] MEDS ORDERED: Potassium Phosphate 15 MMOLE in Dextrose 5% In Water 250 ML IV ONE (10:00)
[2018-08-02] MEDS ORDERED: Potassium & Sodium Phosphate PO ONE (11:00)
--- NOTE | 2018-08-02 11:16 | CP.PCM.PN ---
Subjective - Date & Time of Evaluation Date of Evaluation: 08/02/18 Time of Evaluation: 10:58 - Subjective Subjective: Patient feeling better. Denies any polyuria or polydipsia. Patient in non- compliant with oral as per nurse drinking apple juice. Objective - Vital Signs/Intake and Output Vital Signs (last 24 hours): Temp Pulse Resp BP Pulse Ox 97.8 F 98 H 20 119/85 98 08/02/18 08:00 08/02/18 10:00 08/02/18 10:00 08/02/18 10:00 08/02/18 10:00 Intake and Output: 08/02/18 08/02/18 06:59 18:59 Intake Total 2480 360 Output Total 1500 400 Balance 980 -40 - Medications Medications: Current Medications Bupropion HCl (Wellbutrin) 150 mg PO BID [facility] Last Admin: 08/02/18 08:11 Dose: 150 mg Dextrose (Dextrose 50% Inj) 0 ml IV STAT PRN; Protocol PRN Reason: Hypoglycemia Protocol Dextrose (Glutose 15) 0 gm PO ONCE PRN; Protocol PRN Reason: Hypoglycemia Protocol Enoxaparin Sodium (Lovenox) 40 mg SC DAILY [facility] PRN Reason: Protocol Last Admin: 08/02/18 08:27 Dose: 40 mg Glucagon (Glucagen Diagnostic Kit) 0 mg IM STAT PRN; Protocol PRN Reason: Hypoglycemia Protocol Oral Electrolytes (Kcl 40meq/ 0.9% 1l) 1,000 mls @ 200 mls/hr IV .Q5H [facility] Stop: 08/03/18 07:34 Last Admin: 08/02/18 09:15 Dose: 200 mls/hr Potassium Phosphate 15 mmole/ (Dextrose) 255 mls @ 50 mls/hr IV .Q5H6M ONE Stop: 08/02/18 15:05 Insulin Detemir (Levemir) 24 units SC DAILY [facility] Last Admin: 08/02/18 08:13 Dose: 24 units Insulin Detemir (Levemir) 30 units SC HS [facility] Insulin Human Lispro (Humalog) 0 units SC ACHS [facility] PRN Reason: Protocol Last Admin: 08/02/18 06:37 Dose: 3 units Insulin Human Lispro (Humalog) 14 units SC AC [facility] Ondansetron HCl (Zofran Inj) 4 mg IVP Q6H PRN PRN Reason: Nausea/Vomiting Pantoprazole Sodium (Protonix Inj) 40 mg IVP DAILY [facility] Last Admin: 08/02/18 08:27 Dose: 40 mg Potassium Chloride (K-Dur 20 Meq Er Tab) 40 meq PO Q6H [facility] Stop: 08/03/18 16:01 Last Admin: 08/02/18 10:49 Dose: 40 meq Potassium Phos/Sodium Phos (Neutra-Phos) 1 pkt PO ONCE ONE Stop: 08/02/18 11:01 Sitagliptin Phosphate (Januvia) 50 mg PO DAILY [facility] Last Admin: 08/02/18 08:11 Dose: 50 mg - Labs Labs: 08/02/18 04:30 08/02/18 04:30 Assessment and Plan - Assessment and Plan (Free Text) Assessment: DKA: resolved: off insulin ggt, continue Sub Q insulin as per endocrine -nutrition consult -PT/OT -Patient notes he did not have his medications resulting in DKA and hospital -Patient remains hemodynamically stable. -encourage healthy diet and exercise
[2018-08-02] MEDS ORDERED: Potassium Chloride 20 mEq/15 ml LIQ UD PO SCH (11:45)
--- NOTE | 2018-08-02 12:39 | PN ---
Copied To: Kenzie Funez MD Attending MD: Kenzie Funez MD DATE: 08/02/2018 ENDO FOLLOWUP NOTE LOCATION: ICU, room 428. SUBJECTIVE: This is a 28-year-old male with recent uncontrolled type 1 insulin-dependent diabetes, presenting here with diabetic ketoacidosis and dehydration and is now being followed closely for metabolic management. He received vigorous IV hydration and intensive insulin therapy as noted thereof. His glucose values are still fluctuating and the latest one this morning is 330 mg per deciliter. His chemistry showed a BUN of 2, sodium 140, potassium 2.8, chloride 110, CO2 18, glucose 394, and creatinine 0.6. ASSESSMENT AND PLAN: So at this time, we will modify once again his basal and bolus insulin regimen and increase the Humalog to 14 units subcu t.i.d. to start this morning. We will also increase the basal insulin of Levemir to 30 units subcu at bedtime daily to start tonight. We will continue the modified correction scale using Humalog insulin as given. We will follow and advise accordingly. Kenzie Funez MD
--- NOTE | 2018-08-02 12:58 | CP.PCM.PN ---
<CamdenSultan - Last Filed: 08/02/18 13:28> Subjective - Date & Time of Evaluation Date of Evaluation: 08/02/18 Time of Evaluation: 09:30 - Subjective Subjective: Patient see and examined this AM. No acute overnight event. Denies any acute complaints. Tolerating PO. Denies nausea, vomiting or dizziness. Objective - Vital Signs/Intake and Output Vital Signs (last 24 hours): Temp Pulse Resp BP Pulse Ox 97.8 F 98 H 20 119/85 98 08/02/18 08:00 08/02/18 10:00 08/02/18 10:00 08/02/18 10:00 08/02/18 10:00 Intake and Output: 08/02/18 08/02/18 06:59 18:59 Intake Total 2480 720 Output Total 1500 400 Balance 980 320 - Medications Medications: Current Medications Bupropion HCl (Wellbutrin) 150 mg PO BID [facility] Last Admin: 08/02/18 08:11 Dose: 150 mg Dextrose (Dextrose 50% Inj) 0 ml IV STAT PRN; Protocol PRN Reason: Hypoglycemia Protocol Dextrose (Glutose 15) 0 gm PO ONCE PRN; Protocol PRN Reason: Hypoglycemia Protocol Enoxaparin Sodium (Lovenox) 40 mg SC DAILY [facility] PRN Reason: Protocol Last Admin: 08/02/18 08:27 Dose: 40 mg Glucagon (Glucagen Diagnostic Kit) 0 mg IM STAT PRN; Protocol PRN Reason: Hypoglycemia Protocol Oral Electrolytes (Kcl 40meq/ 0.9% 1l) 1,000 mls @ 200 mls/hr IV .Q5H [facility] Stop: 08/03/18 07:34 Last Admin: 08/02/18 09:15 Dose: 200 mls/hr Potassium Phosphate 15 mmole/ (Dextrose) 255 mls @ 50 mls/hr IV .Q5H6M ONE Stop: 08/02/18 15:05 Insulin Detemir (Levemir) 24 units SC DAILY [facility] Last Admin: 08/02/18 08:13 Dose: 24 units Insulin Detemir (Levemir) 30 units SC HS [facility] Insulin Human Lispro (Humalog) 0 units SC ACHS [facility] PRN Reason: Protocol Last Admin: 08/02/18 12:38 Dose: Not Given Insulin Human Lispro (Humalog) 14 units SC AC [facility] Last Admin: 08/02/18 12:37 Dose: 14 u Ondansetron HCl (Zofran Inj) 4 mg IVP Q6H PRN PRN Reason: Nausea/Vomiting Pantoprazole Sodium (Protonix Inj) 40 mg IVP DAILY [facility] Last Admin: 08/02/18 08:27 Dose: 40 mg Potassium Chloride (Potassium Chloride Oral Soln) 40 meq PO Q6H [facility] Stop: 08/03/18 05:46 Sitagliptin Phosphate (Januvia) 50 mg PO DAILY [facility] Last Admin: 08/02/18 08:11 Dose: 50 mg - Labs Labs: 08/02/18 04:30 08/02/18 04:30 - Constitutional Appears: No Acute Distress, Other (mobidly obese) - Head Exam Head Exam: NORMAL INSPECTION - Eye Exam Eye Exam: Normal appearance - ENT Exam ENT Exam: Mucous Membranes Moist - Neck Exam Neck Exam: Normal Inspection - Respiratory Exam Respiratory Exam: Clear to Ausculation Bilateral, NORMAL BREATHING PATTERN. absent: Rhonchi, Wheezes - Cardiovascular Exam Cardiovascular Exam: RRR, +S1, +S2 - GI/Abdominal Exam GI & Abdominal Exam: Soft, Normal Bowel Sounds. absent: Distended, Tenderness - Extremities Exam Extremities Exam: absent: Calf Tenderness, Pedal Edema - Neurological Exam Neurological Exam: Alert, Awake, Oriented x3 - Skin Skin Exam: Dry, Intact, Normal Color Assessment and Plan - Assessment and Plan (Free Text) Assessment: 28 yo male with history of HTN, Asthma and newly diagnosed DM2 came in because of abdominal pain, vomiting, sorethroat, polyuria and polydipsia since yesterday admitted for DKA. He claimed he was not able to inject himself with insulin for 3 days since he was not able to fill up his prescriptions. No night sweats, fevers, chills, no nausea, no vomiting. 1. DKA AG 15 hga1c: 14.7 acchuchek every 2 hrs Continue Humalog 14 unit TID and Levemir Continue NS with K+ 40meq @200 cc/hr Hypokalemia - K 2.8 this morningj. repeat BMP this afternoon after potassium given ; EKG prolonged qt yesterday endocrinology consult with Dr Funez Possible transfer to [facility] this afternoon if K is stable. 2. HTN BP stable will hold Amlodipine, Losartan and Metoprolol until DKA is controlled 3. Asthma asymptomatic 4. DVT prophylaxis Lovenox 40mg SC daily <Erendira Chang - Last Filed: 08/02/18 16:26> Objective - Vital Signs/Intake and Output Vital Signs (last 24 hours): Temp Pulse Resp BP Pulse Ox 98.5 F 109 H 12 131/94 H 98 08/02/18 12:00 08/02/18 14:00 08/02/18 14:00 08/02/18 14:00 08/02/18 14:00 Intake and Output: 08/02/18 08/02/18 06:59 18:59 Intake Total 2480 840 Output Total 1500 400 Balance 980 440 - Medications Medications: Current Medications Bupropion HCl (Wellbutrin) 150 mg PO BID [facility] Last Admin: 08/02/18 08:11 Dose: 150 mg Dextrose (Dextrose 50% Inj) 0 ml IV STAT PRN; Protocol PRN Reason: Hypoglycemia Protocol Dextrose (Glutose 15) 0 gm PO ONCE PRN; Protocol PRN Reason: Hypoglycemia Protocol Enoxaparin Sodium (Lovenox) 40 mg SC DAILY [facility] PRN Reason: Protocol Last Admin: 08/02/18 08:27 Dose: 40 mg Glucagon (Glucagen Diagnostic Kit) 0 mg IM STAT PRN; Protocol PRN Reason: Hypoglycemia Protocol Oral Electrolytes (Kcl 40meq/ 0.9% 1l) 1,000 mls @ 200 mls/hr IV .Q5H [facility] Stop: 08/03/18 07:34 Last Admin: 08/02/18 09:15 Dose: 200 mls/hr Insulin Detemir (Levemir) 24 units SC DAILY [facility] Last Admin: 08/02/18 08:13 Dose: 24 units Insulin Detemir (Levemir) 30 units SC HS [facility] Insulin Human Lispro (Humalog) 0 units SC ACHS [facility] PRN Reason: Protocol Last Admin: 08/02/18 12:38 Dose: Not Given Insulin Human Lispro (Humalog) 14 units SC AC [facility] Last Admin: 08/02/18 12:37 Dose: 14 u Ondansetron HCl (Zofran Inj) 4 mg IVP Q6H PRN PRN Reason: Nausea/Vomiting Sitagliptin Phosphate (Januvia) 50 mg PO DAILY [facility] Last Admin: 08/02/18 08:11 Dose: 50 mg - Labs Labs: 08/02/18 04:30 08/02/18 12:20 Attending/Attestation - Attestation I have personally seen and examined this patient.: Yes I have fully participated in the care of the patient.: Yes I have reviewed all pertinent clinical information, including history, physical exam and plan: Yes Notes (Text): 08/02/18 16:23 Seen, examined, discussed with resident Dr. Sifuentes. Agree with findings and plan as above. Patient on sliding scale however noncompliant with recommended diet. Patient regimen adjusted per Endocrine, consult appreciated with Dr. Funez. Pt hypokalemic , repleting and rechecking serially. Transferring to [facility] today.
[2018-08-02 13:18] LABS: BLOOD UREA NITROGEN 2 mg/dl (9-20); CALCIUM 9.1 mg/dL (8.4-10.2); GFR NON-AFRICAN AMERICAN > 60
[2018-08-02 19:34] LABS: BLOOD UREA NITROGEN 2 mg/dl (9-20); GFR NON-AFRICAN AMERICAN > 60
[2018-08-02] MEDS ORDERED: Potassium Chloride 20 mEq 100 ML IVPB ONE (19:39)
[2018-08-02] MEDS ORDERED: Insulin Detemir 100 Units/ml Inj SC SCH (22:00)
[2018-08-02] MEDS: Potassium Chloride 20 mEq 100 ML IVPB SCH (23:11)
[2018-08-03] MEDS: Potassium Chloride 20 mEq 100 ML IVPB SCH ×5 (01:26→20:44)
[2018-08-03] MEDS: Insulin Lispro (humaLOG) 100 Units/ml Inj SC SCH ×7 (06:30→22:51)
[2018-08-03 07:22] LABS: BLOOD UREA NITROGEN < 2 mg/dl (9-20); CALCIUM 8.5 mg/dL (8.4-10.2); GFR NON-AFRICAN AMERICAN > 60
[2018-08-03] MEDS: Insulin Detemir 100 Units/ml Inj SC SCH ×2 (09:08→23:09)
[2018-08-03] MEDS: Enoxaparin 40 mg Syringe SC SCH (09:11)
--- NOTE | 2018-08-03 10:06 | CP.PCM.DIS ---
Provider - Provider Date of Admission: 07/30/18 12:22 Attending physician: Guru Aceves MD Time Spent in preparation of Discharge (in minutes): 35 Hospital Course - Lab Results Lab Results: Micro Results 07/30/18 18:57 Naris MRSA Culture (Admit) - Final MRSA NOT DETECTED Most Recent Lab Values WBC 6.4 K/uL (4.8-10.8) 08/02/18 04:30 RBC 5.08 Mil/uL (4.40-5.90) 08/02/18 04:30 Hgb 14.2 g/dL (12.0-18.0) 08/02/18 04:30 Hct 40.7 % (35.0-51.0) 08/02/18 04:30 MCV 80.2 fl (80.0-94.0) 08/02/18 04:30 MCH 28.0 pg (27.0-31.0) 08/02/18 04:30 MCHC 34.9 g/dL (33.0-37.0) 08/02/18 04:30 RDW 15.7 % (11.5-14.5) H 08/02/18 04:30 Plt Count 195 K/uL (130-400) 08/02/18 04:30 MPV 8.0 fl (7.2-11.7) 07/31/18 04:40 Neut % (Auto) 73.6 % (50.0-75.0) 07/31/18 04:40 Lymph % (Auto) 16.3 % (20.0-40.0) L 07/31/18 04:40 [place] % (Auto) 8.8 % (0.0-10.0) 07/31/18 04:40 Eos % (Auto) 0.5 % (0.0-4.0) 07/31/18 04:40 Baso % (Auto) 0.8 % (0.0-2.0) 07/31/18 04:40 Neut # (Auto) 5.3 K/uL (1.8-7.0) 07/31/18 04:40 Lymph # (Auto) 1.2 K/uL (1.0-4.3) 07/31/18 04:40 [place] # (Auto) 0.6 K/uL (0.0-0.8) 07/31/18 04:40 Eos # (Auto) 0.0 K/uL (0.0-0.7) 07/31/18 04:40 Baso # (Auto) 0.1 K/uL (0.0-0.2) 07/31/18 04:40 pO2 29 mm/Hg (30-55) L 07/30/18 11:25 VBG pH 7.07 (7.32-7.43) L* 07/30/18 11:25 VBG pCO2 24 mmHg (40-60) L 07/30/18 11:25 VBG HCO3 6.2 mmol/L 07/30/18 11:25 VBG Total CO2 7.7 mmol/L (22-28) L 07/30/18 11:25 VBG O2 Sat (Calc) 60.8 % (40-65) 07/30/18 11:25 VBG Base Excess -21.7 mmol/L (0.0-2.0) L 07/30/18 11:25 VBG Potassium 3.6 mmol/L (3.6-5.2) 07/30/18 11:25 Sodium 132.0 mmol/L (132-148) 07/30/18 11:25 Chloride 96.0 mmol/L (98-107) L 07/30/18 11:25 Glucose 561 mg/dL (75-110) H* 07/30/18 11:25 Lactate 1.7 mmol/L (0.7-2.1) 07/30/18 11:25 FiO2 21.0 % 07/30/18 11:25 Crit Value Called To Dr olivia dumont 07/30/18 11:25 Crit Value Called By 23 07/30/18 11:25 Crit Value Read Back Y 07/30/18 11:25 Blood Gas Notified Time 1140 07/30/18 11:25 Sodium 137 mmol/l (132-148) 08/03/18 05:00 Potassium 3.5 MMOL/L (3.6-5.0) L 08/03/18 05:00 Chloride 108 mmol/L (98-107) H 08/03/18 05:00 Carbon Dioxide 19 mmol/L (22-30) L 08/03/18 05:00 Anion Gap 14 (10-20) 08/03/18 05:00 BUN < 2 mg/dl (9-20) L 08/03/18 05:00 Creatinine 0.6 mg/dl (0.8-1.5) L 08/03/18 05:00 Est GFR ( Amer) > 60 08/03/18 05:00 Est GFR (Non-Af Amer) > 60 08/03/18 05:00 POC Glucose (mg/dL) 226 mg/dL (65-110) H 08/03/18 05:44 Random Glucose 239 mg/dL (75-110) H 08/03/18 05:00 Hemoglobin A1c 14.7 % (4.2-6.5) H 07/31/18 04:40 Calcium 8.5 mg/dL (8.4-10.2) 08/03/18 05:00 Phosphorus 2.9 mg/dl (2.5-4.5) 08/03/18 05:00 Magnesium 1.8 MG/DL (1.6-2.3) 08/03/18 05:00 Total Bilirubin 0.5 mg/dl (0.2-1.3) 08/02/18 04:30 AST 16 U/L (17-59) L 08/02/18 04:30 ALT 25 U/L (21-72) 08/02/18 04:30 Alkaline Phosphatase 133 U/L (38-126) H 08/02/18 04:30 Troponin I < 0.0120 ng/mL (0.00-0.120) 07/30/18 11:18 Total Protein 6.3 G/DL (6.3-8.2) 08/02/18 04:30 Albumin 3.4 g/dL (3.5-5.0) L 08/02/18 04:30 Globulin 2.9 gm/dL (2.2-3.9) 08/02/18 04:30 Albumin/Globulin Ratio 1.2 (1.0-2.1) 08/02/18 04:30 Triglycerides 180 mg/DL (0-149) H 07/31/18 04:40 Cholesterol 196 mg/dL (0-199) 07/31/18 04:40 LDL Cholesterol Direct 134 mg/dL (0-129) H 07/31/18 04:40 HDL Cholesterol 23 MG/DL (30-70) L 07/31/18 04:40 TSH 3rd Generation 1.40 mIU/ML (0.46-4.68) 07/31/18 04:40 Venous Blood Potassium 3.6 mmol/L (3.6-5.2) 07/30/18 11:25 Urine Color Straw (YELLOW) 07/30/18 11:18 Urine Clarity Clear (Clear) 07/30/18 11:18 Urine pH 6.0 (5.0-8.0) 07/30/18 11:18 Ur Specific [place] 1.026 (1.003-1.030) 07/30/18 11:18 Urine Protein 100 mg/dL (NEGATIVE) 07/30/18 11:18 Urine Glucose (UA) >=500 mg/dL (Normal) 07/30/18 11:18 Urine Ketones 80 mg/dL (NEGATIVE) 07/30/18 11:18 Urine Blood Small (NEGATIVE) 07/30/18 11:18 Urine Nitrate Negative (NEGATIVE) 07/30/18 11:18 Urine Bilirubin Negative (NEGATIVE) 07/30/18 11:18 Urine Urobilinogen 0.2-1.0 mg/dL (0.2-1.0) 07/30/18 11:18 Ur Leukocyte Esterase Neg Kristine/uL (Negative) 07/30/18 11:18 Urine RBC (Auto) 3 /hpf (0-3) 07/30/18 11:18 Urine Microscopic WBC 1 /hpf (0-5) 07/30/18 11:18 Ur Squamous Epith Cells < 1 /hpf (0-5) 07/30/18 11:18 Ur Renal Epithelial Cell < 1 /hpf (0-3) 07/30/18 11:18 Urine Opiates Screen Negative (NEGATIVE) 07/30/18 11:18 Urine Methadone Screen Negative (NEGATIVE) 07/30/18 11:18 Ur Barbiturates Screen Negative (NEGATIVE) 07/30/18 11:18 Ur Phencyclidine Scrn Negative (NEGATIVE) 07/30/18 11:18 Ur Amphetamines Screen Negative (NEGATIVE) 07/30/18 11:18 U Benzodiazepines Scrn Negative (NEGATIVE) 07/30/18 11:18 U Oth Cocaine Metabols Negative (NEGATIVE) 07/30/18 11:18 U Cannabinoids Screen Negative (NEGATIVE) 07/30/18 11:18 Alcohol, Quantitative < 10 mg/dl (0-10) 07/30/18 11:18 Discharge Exam - Head Exam Head Exam: NORMAL INSPECTION - Respiratory Exam Respiratory Exam: UNREMARKABLE - Cardiovascular Exam Cardiovascular Exam: REGULAR RHYTHM - GI/Abdominal Exam GI & Abdominal Exam: Unremarkable - Skin Skin Exam: Normal Color, Warm Discharge Plan - Discharge Medications Prescriptions: buPROPion [Wellbutrin] 150 mg PO BID #60 tab Insulin Detemir [Levemir] 30 units SC HS #1 vial Insulin Detemir [Levemir] 24 units SC DAILY #1 vial SITagliptin [Januvia] 50 mg PO DAILY #30 tab - Follow Up Plan Condition: FAIR Disposition: HOME/ ROUTINE Instructions: Diabetic Ketoacidosis (DC) Referrals: [facility] [Provider Group] Kenzie Funez MD [Medical Doctor] -
[2018-08-03 10:20] LABS: CALCIUM 8.8 mg/dL (8.4-10.2); GFR NON-AFRICAN AMERICAN > 60
[2018-08-03 10:38] LABS: BLOOD UREA NITROGEN < 2 mg/dl (9-20)
--- NOTE | 2018-08-03 15:03 | PN ---
Copied To: Kenzie Funez MD Attending MD: Kenzie Funez MD DATE: 08/03/2018 ENDO FOLLOWUP NOTE. LOCATION: ICU, room 428. SUBJECTIVE: This is a 28-year-old male with recent controlled type 1 insulin-dependent diabetes, presenting here with hyperglycemic accelerations and supervening diabetic ketoacidosis and dehydration. He received intensive insulin therapy and vigorous IV hydration was given. His glycemic levels are fluctuating as noted. His latest chemistry showed a BUN of 2, sodium 140, potassium 2.8, chloride 110, CO2 of 18, glucose 394, and creatinine 0.6. ASSESSMENT AND PLAN: So, at this point, we will continue the modified basal and bolus insulin regimen as given with Humalog given as 14 units t.i.d. before meals as ordered. We will also continue the basal insulin given as Levemir at 30 units subcutaneously at bedtime daily as given. We will follow. Kenzie Funez MD
[2018-08-03 17:18] LABS: BLOOD UREA NITROGEN 4 mg/dl (9-20); CALCIUM 9.2 mg/dL (8.4-10.2); GFR NON-AFRICAN AMERICAN > 60
[2018-08-03] MEDS ORDERED: Potassium Chloride 20 mEq/15 ml LIQ UD PO ONE (17:22)
--- NOTE | 2018-08-03 17:49 | CP.PCM.PN ---
<Gladys Wick - Last Filed: 08/03/18 18:30> Subjective - Date & Time of Evaluation Date of Evaluation: 08/03/18 Time of Evaluation: 10:00 - Subjective Subjective: Patient see and examined bedside with Dr Chang. No events overnight and denies any acute complaints. He is tolerating PO but is noncompliant with a low-sugar diet. Denies nausea, vomiting or dizziness. Objective - Vital Signs/Intake and Output Vital Signs (last 24 hours): Temp Pulse Resp BP Pulse Ox 98.1 F 86 17 134/86 98 08/03/18 16:29 08/03/18 16:29 08/03/18 16:29 08/03/18 16:29 08/03/18 16:29 - Medications Medications: Current Medications Bupropion HCl (Wellbutrin) 150 mg PO BID [facility] Last Admin: 08/03/18 17:11 Dose: 150 mg Dextrose (Dextrose 50% Inj) 0 ml IV STAT PRN; Protocol PRN Reason: Hypoglycemia Protocol Dextrose (Glutose 15) 0 gm PO ONCE PRN; Protocol PRN Reason: Hypoglycemia Protocol Enoxaparin Sodium (Lovenox) 40 mg SC DAILY [facility] PRN Reason: Protocol Last Admin: 08/03/18 09:11 Dose: 40 mg Glucagon (Glucagen Diagnostic Kit) 0 mg IM STAT PRN; Protocol PRN Reason: Hypoglycemia Protocol Potassium Chloride (Potassium Chloride 20 Meq/100 Ml) 100 mls @ 50 mls/hr IVPB Q2 [facility] Stop: 08/03/18 21:59 Insulin Detemir (Levemir) 24 units SC DAILY [facility] Last Admin: 08/03/18 09:08 Dose: 24 units Insulin Detemir (Levemir) 30 units SC HS [facility] Last Admin: 08/02/18 22:31 Dose: 30 units Insulin Human Lispro (Humalog) 0 units SC ACHS [facility] PRN Reason: Protocol Last Admin: 08/03/18 17:11 Dose: Not Given Insulin Human Lispro (Humalog) 14 units SC AC [facility] Last Admin: 08/03/18 17:10 Dose: 14 u Ondansetron HCl (Zofran Inj) 4 mg IVP Q6H PRN PRN Reason: Nausea/Vomiting Sitagliptin Phosphate (Januvia) 50 mg PO DAILY [facility] Last Admin: 08/03/18 09:11 Dose: 50 mg - Labs Labs: 08/02/18 04:30 08/03/18 16:50 - Constitutional Appears: Non-toxic - Head Exam Head Exam: ATRAUMATIC - Neck Exam Neck Exam: Normal Inspection - Respiratory Exam Respiratory Exam: Clear to Ausculation Bilateral, NORMAL BREATHING PATTERN - Cardiovascular Exam Cardiovascular Exam: REGULAR RHYTHM - GI/Abdominal Exam GI & Abdominal Exam: Soft, Normal Bowel Sounds - Extremities Exam Extremities Exam: Full ROM, Normal Inspection - Psychiatric Exam Additional comments: Developmental delay - Skin Skin Exam: Normal Color, Warm Assessment and Plan - Assessment and Plan (Free Text) Assessment: 28 yo male with history of HTN, Asthma and newly diagnosed DM2 came in because of abdominal pain, vomiting, sorethroat, polyuria and polydipsia since yesterday admitted for DKA. He claimed he was not able to inject himself with insulin for 3 days since he was not able to fill up his prescriptions. No night sweats, fevers, chills, no nausea, no vomiting. 1. DKA Resolved HgA1c: 14.7 Continue Humalog 14 unit TID; Levemir 30 unit bedtime/24 unit day; and Januvia Endocrinology consult with Dr Funez, recommended current insulin regimen 2. Hypokalemia K 3.2, repeat BMP this afternoon after potassium given K 3.1 Additional 40 meq K IV ordered, repeat BMP 2 hours after completed 2. HTN BP stable 3. Asthma Asymptomatic 4. DVT prophylaxis Lovenox 40mg SC daily <Erendira Chang - Last Filed: 08/05/18 16:21> Objective - Vital Signs/Intake and Output Vital Signs (last 24 hours): Temp Pulse Resp BP Pulse Ox 98.1 F 93 H 18 110/73 96 08/05/18 12:19 08/05/18 12:19 08/05/18 12:19 08/05/18 12:19 08/05/18 12:19 - Labs Labs: 08/02/18 04:30 08/04/18 19:00 Attending/Attestation - Attestation I have personally seen and examined this patient.: Yes I have fully participated in the care of the patient.: Yes I have reviewed all pertinent clinical information, including history, physical exam and plan: Yes Notes (Text): 08/05/18 16:20 Seen, examined, discussed with resident Dr. Wick. Agree with findings and plan as above.
[2018-08-04 05:53] LABS: BLOOD UREA NITROGEN 3 mg/dl (9-20); CALCIUM 8.6 mg/dL (8.4-10.2); GFR NON-AFRICAN AMERICAN > 60
--- NOTE | 2018-08-04 08:19 | CP.PCM.PN ---
<Gladys Wick - Last Filed: 08/04/18 14:21> Subjective - Date & Time of Evaluation Date of Evaluation: 08/04/18 Time of Evaluation: 08:30 - Subjective Subjective: Patient see and examined bedside with Dr Gomez. Only current complaint is a seborhheic dermatitis present on face. He is tearful from being homesick and recent passing of father. He is tolerating PO. Grandmother was present bedside late yesterday (08/03) and was made aware of his medical conditions and associated symptoms. Denies nausea, vomiting, chest pain, shortness of breath or dizziness. Objective - Vital Signs/Intake and Output Vital Signs (last 24 hours): Temp Pulse Resp BP Pulse Ox 97.8 F 77 16 93/60 L 97 08/04/18 05:00 08/04/18 05:00 08/04/18 05:00 08/04/18 05:00 08/04/18 05:00 - Medications Medications: Current Medications Bupropion HCl (Wellbutrin) 150 mg PO BID [facility] Last Admin: 08/03/18 17:11 Dose: 150 mg Dextrose (Dextrose 50% Inj) 0 ml IV STAT PRN; Protocol PRN Reason: Hypoglycemia Protocol Dextrose (Glutose 15) 0 gm PO ONCE PRN; Protocol PRN Reason: Hypoglycemia Protocol Enoxaparin Sodium (Lovenox) 40 mg SC DAILY [facility] PRN Reason: Protocol Last Admin: 08/03/18 09:11 Dose: 40 mg Glucagon (Glucagen Diagnostic Kit) 0 mg IM STAT PRN; Protocol PRN Reason: Hypoglycemia Protocol Potassium Chloride (Potassium Chloride 20 Meq/100 Ml) 100 mls @ 50 mls/hr IVPB Q2 [facility] Stop: 08/04/18 11:59 Insulin Detemir (Levemir) 34 units SC HS [facility] Last Admin: 08/03/18 23:09 Dose: 34 units Insulin Human Lispro (Humalog) 0 units SC ACHS [facility] PRN Reason: Protocol Last Admin: 08/03/18 22:51 Dose: Not Given Insulin Human Lispro (Humalog) 14 units SC AC [facility] Last Admin: 08/03/18 17:10 Dose: 14 u Ketoconazole (Nizoral) 1 applic TOP BID [facility] Last Admin: 08/03/18 20:31 Dose: 1 applic Metformin HCl (Glucophage) 850 mg PO BIDWM [facility] Ondansetron HCl (Zofran Inj) 4 mg IVP Q6H PRN PRN Reason: Nausea/Vomiting Potassium Chloride (K-Dur 20 Meq Er Tab) 20 meq PO BID [facility] - Labs Labs: 08/02/18 04:30 08/04/18 04:45 - Constitutional Appears: No Acute Distress - Head Exam Head Exam: ATRAUMATIC Additional comments: Seborhheic dermatitis present on forehead and perioral - Eye Exam Eye Exam: Normal appearance - ENT Exam ENT Exam: Mucous Membranes Moist, Normal Exam - Neck Exam Neck Exam: Full ROM, Normal Inspection - Respiratory Exam Respiratory Exam: Clear to Ausculation Bilateral, NORMAL BREATHING PATTERN - Cardiovascular Exam Cardiovascular Exam: REGULAR RHYTHM - GI/Abdominal Exam GI & Abdominal Exam: Normal Bowel Sounds - Extremities Exam Additional comments: Left upper extremity swollen with multiple contusions secondary to blood draws and IVF - Neurological Exam Neurological Exam: Awake, Oriented x3 - Psychiatric Exam Additional comments: tearful due to being homesick and recent passing of father - Skin Skin Exam: Normal Color, Warm Assessment and Plan - Assessment and Plan (Free Text) Assessment: 28 yo male with history of HTN, Asthma and newly diagnosed DM2 came in because of abdominal pain, vomiting, sorethroat, polyuria and polydipsia since yesterday admitted for DKA. He claimed he was not able to inject himself with insulin for 3 days since he was not able to fill up his prescriptions. No night sweats, fevers, chills, no nausea, no vomiting. 1. DKA Resolved HgA1c: 14.7 Continue Humalog 14 unit TID; Levemir 30 unit bedtime/24 unit day; and Januvia Endocrinology consult with Dr Funez, recommended current insulin regimen 2. Hypokalemia K 3.1, repeat BMP after 20 meq K PO BID 2. HTN Transient hypotension (93/60) - trending blood pressure 3. Asthma Asymptomatic 4. DVT prophylaxis Lovenox 40mg SC daily <Aileen Gomez - Last Filed: 08/04/18 16:26> Objective - Vital Signs/Intake and Output Vital Signs (last 24 hours): Temp Pulse Resp BP Pulse Ox 97.9 F 94 H 20 122/83 98 08/04/18 13:07 08/04/18 13:07 08/04/18 13:07 08/04/18 13:07 08/04/18 13:07 - Medications Medications: Current Medications Bupropion HCl (Wellbutrin) 150 mg PO BID [facility] Last Admin: 08/04/18 16:22 Dose: 150 mg Dextrose (Dextrose 50% Inj) 0 ml IV STAT PRN; Protocol PRN Reason: Hypoglycemia Protocol Dextrose (Glutose 15) 0 gm PO ONCE PRN; Protocol PRN Reason: Hypoglycemia Protocol Enoxaparin Sodium (Lovenox) 40 mg SC DAILY [facility] PRN Reason: Protocol Last Admin: 08/04/18 09:06 Dose: 40 mg Glucagon (Glucagen Diagnostic Kit) 0 mg IM STAT PRN; Protocol PRN Reason: Hypoglycemia Protocol Insulin Detemir (Levemir) 34 units SC HS [facility] Last Admin: 08/03/18 23:09 Dose: 34 units Insulin Human Lispro (Humalog) 0 units SC ACHS [facility] PRN Reason: Protocol Last Admin: 08/04/18 16:23 Dose: Not Given Insulin Human Lispro (Humalog) 14 units SC AC [facility] Last Admin: 08/04/18 16:23 Dose: 14 u Ketoconazole (Nizoral) 1 applic TOP BID [facility] Last Admin: 08/04/18 16:22 Dose: 1 applic Metformin HCl (Glucophage) 850 mg PO BIDWM [facility] Last Admin: 08/04/18 16:21 Dose: 850 mg Ondansetron HCl (Zofran Inj) 4 mg IVP Q6H PRN PRN Reason: Nausea/Vomiting Potassium Chloride (Potassium Chloride Oral Soln) 20 meq PO BID [facility] Last Admin: 08/04/18 16:22 Dose: 20 meq - Labs Labs: 08/02/18 04:30 08/04/18 04:45 Attending/Attestation - Attestation I have personally seen and examined this patient.: Yes I have fully participated in the care of the patient.: Yes I have reviewed all pertinent clinical information, including history, physical exam and plan: Yes Notes (Text): Noted persistent hypokalemia and low BP this am. We will [id number] to monitor pt in the hospital today. If K is normal and BP stable , we will d/c pt in am
[2018-08-04] MEDS ORDERED: Potassium Chloride 20 mEq ER Tab PO SCH (09:00)
[2018-08-04] MEDS: Insulin Lispro (humaLOG) 100 Units/ml Inj SC SCH ×7 (09:05→21:00)
[2018-08-04] MEDS: Enoxaparin 40 mg Syringe SC SCH (09:06)
[2018-08-04] MEDS: Potassium Chloride 20 mEq 100 ML IVPB SCH ×2 (09:18→11:07)
[2018-08-04] MEDS ORDERED: Potassium Chloride 20 mEq/15 ml LIQ UD PO ONE (13:00)
--- NOTE | 2018-08-04 14:46 | PN ---
Copied To: Kenzie Funez MD Attending MD: Kenzie Funez MD DATE: 08/04/2018 ENDO FOLLOWUP NOTE LOCATION: In room 412 telemetry. SUBJECTIVE: This is a 28-year-old male with recent uncontrolled type 1 insulin-dependent diabetes, presenting here with diabetic ketoacidosis and dehydration and has now improved clinically and metabolically as noted thereof. His glycemic levels are fluctuating, but improved and the glucose values overnight have ranged from 184 to 216 mg/dL. LABORATORY DATA: His latest chemistry showed a BUN of 3, sodium 139, potassium 3.1, chloride 105, CO2 of 26, glucose 225, and creatinine 0.6. ASSESSMENT AND PLAN: So at this time, we will modify once again his basal and bolus insulin regimen and increase the Humalog to 14 units subcutaneously t.i.d. before meals to start this morning. We will also increase the basal insulin with Levemir to be given as 34 units subcutaneously at bedtime daily to start tonight. We will discontinue the Januvia as the patient really has behaved as a type 1 diabetic and Januvia has no role in patients with no insulin reserve in the pancreas. We will add metformin given as 850 mg b.i.d., not only for the underlying obesity, but also to help lower the insulin resistance thereof. We will obtain serial chemistries and supplement accordingly as needed. We will follow. Kenzie Funez MD
[2018-08-04] MEDS: Potassium Chloride 20 mEq/15 ml LIQ UD PO SCH (16:22)
[2018-08-04 20:31] LABS: BLOOD UREA NITROGEN 3 mg/dl (9-20); CALCIUM 8.8 mg/dL (8.4-10.2); GFR NON-AFRICAN AMERICAN > 60
[2018-08-04] MEDS: Insulin Detemir 100 Units/ml Inj SC SCH (21:04)
[2018-08-05 00:12] VITALS: RESP 18
[2018-08-05] MEDS: Potassium Chloride 20 mEq 100 ML IVPB SCH ×3 (04:00→05:56)
[2018-08-05] MEDS: Insulin Lispro (humaLOG) 100 Units/ml Inj SC SCH ×4 (06:43→12:26)
[2018-08-05] MEDS ORDERED: Potassium Chloride 20 mEq/15 ml LIQ UD PO ONE (07:39)
[2018-08-05 08:20] VITALS: O2SAT 96
[2018-08-05] MEDS ORDERED: Magnesium Sulfate 1 GM in Dextrose 5% In Water 100 ML IVPB ONE (08:42)
[2018-08-05] MEDS ORDERED: Magnesium Oxide 400 mg Tab UD PO ONE (08:55)
[2018-08-05] MEDS: Enoxaparin 40 mg Syringe SC SCH (09:11)
[2018-08-05] MEDS: Potassium Chloride 20 mEq/15 ml LIQ UD PO SCH (09:12)
--- NOTE | 2018-08-05 11:02 | CP.PCM.DIS ---
<Gladys Wick - Last Filed: 08/05/18 11:16> Provider - Provider Date of Admission: 07/30/18 12:22 Attending physician: Guru Aceves MD Time Spent in preparation of Discharge (in minutes): 35 Hospital Course - Lab Results Lab Results: Micro Results 08/02/18 16:21 Nose MRSA Culture (Admit) - Final MRSA NOT DETECTED 07/30/18 18:57 Naris MRSA Culture (Admit) - Final MRSA NOT DETECTED Most Recent Lab Values WBC 6.4 K/uL (4.8-10.8) 08/02/18 04:30 RBC 5.08 Mil/uL (4.40-5.90) 08/02/18 04:30 Hgb 14.2 g/dL (12.0-18.0) 08/02/18 04:30 Hct 40.7 % (35.0-51.0) 08/02/18 04:30 MCV 80.2 fl (80.0-94.0) 08/02/18 04:30 MCH 28.0 pg (27.0-31.0) 08/02/18 04:30 MCHC 34.9 g/dL (33.0-37.0) 08/02/18 04:30 RDW 15.7 % (11.5-14.5) H 08/02/18 04:30 Plt Count 195 K/uL (130-400) 08/02/18 04:30 MPV 8.0 fl (7.2-11.7) 07/31/18 04:40 Neut % (Auto) 73.6 % (50.0-75.0) 07/31/18 04:40 Lymph % (Auto) 16.3 % (20.0-40.0) L 07/31/18 04:40 [place] % (Auto) 8.8 % (0.0-10.0) 07/31/18 04:40 Eos % (Auto) 0.5 % (0.0-4.0) 07/31/18 04:40 Baso % (Auto) 0.8 % (0.0-2.0) 07/31/18 04:40 Neut # (Auto) 5.3 K/uL (1.8-7.0) 07/31/18 04:40 Lymph # (Auto) 1.2 K/uL (1.0-4.3) 07/31/18 04:40 [place] # (Auto) 0.6 K/uL (0.0-0.8) 07/31/18 04:40 Eos # (Auto) 0.0 K/uL (0.0-0.7) 07/31/18 04:40 Baso # (Auto) 0.1 K/uL (0.0-0.2) 07/31/18 04:40 pO2 29 mm/Hg (30-55) L 07/30/18 11:25 VBG pH 7.07 (7.32-7.43) L* 07/30/18 11:25 VBG pCO2 24 mmHg (40-60) L 07/30/18 11:25 VBG HCO3 6.2 mmol/L 07/30/18 11:25 VBG Total CO2 7.7 mmol/L (22-28) L 07/30/18 11:25 VBG O2 Sat (Calc) 60.8 % (40-65) 07/30/18 11:25 VBG Base Excess -21.7 mmol/L (0.0-2.0) L 07/30/18 11:25 VBG Potassium 3.6 mmol/L (3.6-5.2) 07/30/18 11:25 Sodium 132.0 mmol/L (132-148) 07/30/18 11:25 Chloride 96.0 mmol/L (98-107) L 07/30/18 11:25 Glucose 561 mg/dL (75-110) H* 07/30/18 11:25 Lactate 1.7 mmol/L (0.7-2.1) 07/30/18 11:25 FiO2 21.0 % 07/30/18 11:25 Crit Value Called To Dr olivia dumont 07/30/18 11:25 Crit Value Called By 23 07/30/18 11:25 Crit Value Read Back Y 07/30/18 11:25 Blood Gas Notified Time 1140 07/30/18 11:25 Sodium 140 mmol/l (132-148) 08/04/18 19:00 Potassium 3.2 MMOL/L (3.6-5.0) L 08/04/18 19:00 Chloride 102 mmol/L (98-107) 08/04/18 19:00 Carbon Dioxide 32 mmol/L (22-30) H 08/04/18 19:00 Anion Gap 9 (10-20) L 08/04/18 19:00 BUN 3 mg/dl (9-20) L 08/04/18 19:00 Creatinine 0.6 mg/dl (0.8-1.5) L 08/04/18 19:00 Est GFR ( Amer) > 60 08/04/18 19:00 Est GFR (Non-Af Amer) > 60 08/04/18 19:00 POC Glucose (mg/dL) 220 mg/dL (65-110) H 08/05/18 05:48 Random Glucose 176 mg/dL (75-110) H 08/04/18 19:00 Hemoglobin A1c 14.7 % (4.2-6.5) H 07/31/18 04:40 Calcium 8.8 mg/dL (8.4-10.2) 08/04/18 19:00 Phosphorus 2.9 mg/dl (2.5-4.5) 08/03/18 05:00 Magnesium 1.6 MG/DL (1.6-2.3) 08/05/18 04:40 Total Bilirubin 0.5 mg/dl (0.2-1.3) 08/02/18 04:30 AST 16 U/L (17-59) L 08/02/18 04:30 ALT 25 U/L (21-72) 08/02/18 04:30 Alkaline Phosphatase 133 U/L (38-126) H 08/02/18 04:30 Troponin I < 0.0120 ng/mL (0.00-0.120) 07/30/18 11:18 Total Protein 6.3 G/DL (6.3-8.2) 08/02/18 04:30 Albumin 3.4 g/dL (3.5-5.0) L 08/02/18 04:30 Globulin 2.9 gm/dL (2.2-3.9) 08/02/18 04:30 Albumin/Globulin Ratio 1.2 (1.0-2.1) 08/02/18 04:30 Triglycerides 180 mg/DL (0-149) H 07/31/18 04:40 Cholesterol 196 mg/dL (0-199) 07/31/18 04:40 LDL Cholesterol Direct 134 mg/dL (0-129) H 07/31/18 04:40 HDL Cholesterol 23 MG/DL (30-70) L 07/31/18 04:40 TSH 3rd Generation 1.40 mIU/ML (0.46-4.68) 07/31/18 04:40 Venous Blood Potassium 3.6 mmol/L (3.6-5.2) 07/30/18 11:25 Urine Color Straw (YELLOW) 07/30/18 11:18 Urine Clarity Clear (Clear) 07/30/18 11:18 Urine pH 6.0 (5.0-8.0) 07/30/18 11:18 Ur Specific [place] 1.026 (1.003-1.030) 07/30/18 11:18 Urine Protein 100 mg/dL (NEGATIVE) 07/30/18 11:18 Urine Glucose (UA) >=500 mg/dL (Normal) 07/30/18 11:18 Urine Ketones 80 mg/dL (NEGATIVE) 07/30/18 11:18 Urine Blood Small (NEGATIVE) 07/30/18 11:18 Urine Nitrate Negative (NEGATIVE) 07/30/18 11:18 Urine Bilirubin Negative (NEGATIVE) 07/30/18 11:18 Urine Urobilinogen 0.2-1.0 mg/dL (0.2-1.0) 07/30/18 11:18 Ur Leukocyte Esterase Neg Kristine/uL (Negative) 07/30/18 11:18 Urine RBC (Auto) 3 /hpf (0-3) 07/30/18 11:18 Urine Microscopic WBC 1 /hpf (0-5) 07/30/18 11:18 Ur Squamous Epith Cells < 1 /hpf (0-5) 07/30/18 11:18 Ur Renal Epithelial Cell < 1 /hpf (0-3) 07/30/18 11:18 Urine Opiates Screen Negative (NEGATIVE) 07/30/18 11:18 Urine Methadone Screen Negative (NEGATIVE) 07/30/18 11:18 Ur Barbiturates Screen Negative (NEGATIVE) 07/30/18 11:18 Ur Phencyclidine Scrn Negative (NEGATIVE) 07/30/18 11:18 Ur Amphetamines Screen Negative (NEGATIVE) 07/30/18 11:18 U Benzodiazepines Scrn Negative (NEGATIVE) 07/30/18 11:18 U Oth Cocaine Metabols Negative (NEGATIVE) 07/30/18 11:18 U Cannabinoids Screen Negative (NEGATIVE) 07/30/18 11:18 Alcohol, Quantitative < 10 mg/dl (0-10) 07/30/18 11:18 - Hospital Course Hospital Course: 28-year-old male with history of HTN, Asthma and newly diagnosed DM2 came in for 1 day history of abdominal pain, vomiting, sore throat, polyuria and polydipsia. He claimed he was not able to inject himself with insulin for 3 days since he was not able to fill up his prescriptions. Denied having fever, chills or chest pain. Patient was admitted to ICU with DKA (AG 15, HcA1C 14.7, POC Glucoe 487) and was given IVFs (NS with K+ 40meq @200 cc/hr) and insulin drip until anion gap normalized. Patient was hypokalemic and was non-compliant with prescribed PO K, received IV K 40mEq/ 0.9% 1L. His Amlodipine, Losartan and Metoprolol were held until DKA stabilized. Endocrinology consulted (Dr. Funez) and recommended insulin regimen (Humalog 14 units SC AC, Levemir 30 units before bedtime and 24 units daily) and Januvia. Patient transferred to [facility] 08/02. Anion gap closed, POC glucose 185, hypokalemia persisted and transient hypotension during deep sleep was noted and followed. Patient cleared for discharge to home from medicine team and educated (although developmentally delayed) on new insulin regimen and decreasing/limiting sugar intake. Recommended to follow-up with PMD in 2-3 days and out-patient endocrinology within a week to be clinically assessed. Discharge Exam - Head Exam Head Exam: ATRAUMATIC Discharge Plan - Discharge Medications Prescriptions: Bupropion HCl [Wellbutrin XL] 300 mg PO DAILY #1 t24 Insulin Glargine,Hum.rec.anlog [Lantus Solostar] 34 unit SQ HS 90 Days insuln.pen Insulin Lispro [Humalog (Insulin Lispro)] 14 unit SQ AC 90 Days cartridge Losartan [Cozaar] 25 mg PO DAILY #30 tab Potassium Chloride [Klor-Con 8] 8 meq PO DAILY #7 ter SITagliptin [Januvia] 50 mg PO DAILY #30 tab - Follow Up Plan Condition: GOOD Disposition: HOME/ ROUTINE Instructions: Diabetic Ketoacidosis (DC), Diabetic Ketoacidosis (DC), Diabetic Ketoacidosis (GEN) Additional Instructions: appt with Dr Chatterjee 1 week appt with [facility] RN for medication [facility] [phone] Referrals: Kenzie Funez MD [Medical Doctor] - Jose Martin Chatterjee [Family Provider] - <Aileen Gomez - Last Filed: 08/05/18 16:22> Provider - Provider Date of Admission: 07/30/18 12:22 Attending physician: Guru Aceves MD Diagnosis - Discharge Diagnosis (1) DKA (diabetic ketoacidoses) Status: Acute (2) Hypokalemia Status: Acute (3) Depression Status: Chronic (4) Obesity, morbid, BMI 40.0-49.9 Status: Chronic Hospital Course - Lab Results Lab Results: Micro Results 08/02/18 16:21 Nose MRSA Culture (Admit) - Final MRSA NOT DETECTED 07/30/18 18:57 Naris MRSA Culture (Admit) - Final MRSA NOT DETECTED Most Recent Lab Values WBC 6.4 K/uL (4.8-10.8) 08/02/18 04:30 RBC 5.08 Mil/uL (4.40-5.90) 08/02/18 04:30 Hgb 14.2 g/dL (12.0-18.0) 08/02/18 04:30 Hct 40.7 % (35.0-51.0) 08/02/18 04:30 MCV 80.2 fl (80.0-94.0) 08/02/18 04:30 MCH 28.0 pg (27.0-31.0) 08/02/18 04:30 MCHC 34.9 g/dL (33.0-37.0) 08/02/18 04:30 RDW 15.7 % (11.5-14.5) H 08/02/18 04:30 Plt Count 195 K/uL (130-400) 08/02/18 04:30 MPV 8.0 fl (7.2-11.7) 07/31/18 04:40 Neut % (Auto) 73.6 % (50.0-75.0) 07/31/18 04:40 Lymph % (Auto) 16.3 % (20.0-40.0) L 07/31/18 04:40 [place] % (Auto) 8.8 % (0.0-10.0) 07/31/18 04:40 Eos % (Auto) 0.5 % (0.0-4.0) 07/31/18 04:40 Baso % (Auto) 0.8 % (0.0-2.0) 07/31/18 04:40 Neut # (Auto) 5.3 K/uL (1.8-7.0) 07/31/18 04:40 Lymph # (Auto) 1.2 K/uL (1.0-4.3) 07/31/18 04:40 [place] # (Auto) 0.6 K/uL (0.0-0.8) 07/31/18 04:40 Eos # (Auto) 0.0 K/uL (0.0-0.7) 07/31/18 04:40 Baso # (Auto) 0.1 K/uL (0.0-0.2) 07/31/18 04:40 pO2 29 mm/Hg (30-55) L 07/30/18 11:25 VBG pH 7.07 (7.32-7.43) L* 07/30/18 11:25 VBG pCO2 24 mmHg (40-60) L 07/30/18 11:25 VBG HCO3 6.2 mmol/L 07/30/18 11:25 VBG Total CO2 7.7 mmol/L (22-28) L 07/30/18 11:25 VBG O2 Sat (Calc) 60.8 % (40-65) 07/30/18 11:25 VBG Base Excess -21.7 mmol/L (0.0-2.0) L 07/30/18 11:25 VBG Potassium 3.6 mmol/L (3.6-5.2) 07/30/18 11:25 Sodium 132.0 mmol/L (132-148) 07/30/18 11:25 Chloride 96.0 mmol/L (98-107) L 07/30/18 11:25 Glucose 561 mg/dL (75-110) H* 07/30/18 11:25 Lactate 1.7 mmol/L (0.7-2.1) 07/30/18 11:25 FiO2 21.0 % 07/30/18 11:25 Crit Value Called To Dr olivia dumont 07/30/18 11:25 Crit Value Called By 23 07/30/18 11:25 Crit Value Read Back Y 07/30/18 11:25 Blood Gas Notified Time 1140 07/30/18 11:25 Sodium 140 mmol/l (132-148) 08/04/18 19:00 Potassium 3.2 MMOL/L (3.6-5.0) L 08/04/18 19:00 Chloride 102 mmol/L (98-107) 08/04/18 19:00 Carbon Dioxide 32 mmol/L (22-30) H 08/04/18 19:00 Anion Gap 9 (10-20) L 08/04/18 19:00 BUN 3 mg/dl (9-20) L 08/04/18 19:00 Creatinine 0.6 mg/dl (0.8-1.5) L 08/04/18 19:00 Est GFR ( Amer) > 60 08/04/18 19:00 Est GFR (Non-Af Amer) > 60 08/04/18 19:00 POC Glucose (mg/dL) 274 mg/dL (65-110) H 08/05/18 11:09 Random Glucose 176 mg/dL (75-110) H 08/04/18 19:00 Hemoglobin A1c 14.7 % (4.2-6.5) H 07/31/18 04:40 Calcium 8.8 mg/dL (8.4-10.2) 08/04/18 19:00 Phosphorus 2.9 mg/dl (2.5-4.5) 08/03/18 05:00 Magnesium 1.6 MG/DL (1.6-2.3) 08/05/18 04:40 Total Bilirubin 0.5 mg/dl (0.2-1.3) 08/02/18 04:30 AST 16 U/L (17-59) L 08/02/18 04:30 ALT 25 U/L (21-72) 08/02/18 04:30 Alkaline Phosphatase 133 U/L (38-126) H 08/02/18 04:30 Troponin I < 0.0120 ng/mL (0.00-0.120) 07/30/18 11:18 Total Protein 6.3 G/DL (6.3-8.2) 08/02/18 04:30 Albumin 3.4 g/dL (3.5-5.0) L 08/02/18 04:30 Globulin 2.9 gm/dL (2.2-3.9) 08/02/18 04:30 Albumin/Globulin Ratio 1.2 (1.0-2.1) 08/02/18 04:30 Triglycerides 180 mg/DL (0-149) H 07/31/18 04:40 Cholesterol 196 mg/dL (0-199) 07/31/18 04:40 LDL Cholesterol Direct 134 mg/dL (0-129) H 07/31/18 04:40 HDL Cholesterol 23 MG/DL (30-70) L 07/31/18 04:40 TSH 3rd Generation 1.40 mIU/ML (0.46-4.68) 07/31/18 04:40 Venous Blood Potassium 3.6 mmol/L (3.6-5.2) 07/30/18 11:25 Urine Color Straw (YELLOW) 07/30/18 11:18 Urine Clarity Clear (Clear) 07/30/18 11:18 Urine pH 6.0 (5.0-8.0) 07/30/18 11:18 Ur Specific [place] 1.026 (1.003-1.030) 07/30/18 11:18 Urine Protein 100 mg/dL (NEGATIVE) 07/30/18 11:18 Urine Glucose (UA) >=500 mg/dL (Normal) 07/30/18 11:18 Urine Ketones 80 mg/dL (NEGATIVE) 07/30/18 11:18 Urine Blood Small (NEGATIVE) 07/30/18 11:18 Urine Nitrate Negative (NEGATIVE) 07/30/18 11:18 Urine Bilirubin Negative (NEGATIVE) 07/30/18 11:18 Urine Urobilinogen 0.2-1.0 mg/dL (0.2-1.0) 07/30/18 11:18 Ur Leukocyte Esterase Neg Kristine/uL (Negative) 07/30/18 11:18 Urine RBC (Auto) 3 /hpf (0-3) 08/29/18 11:18 Urine Microscopic WBC 1 /hpf (0-5) 07/30/18 11:18 Ur Squamous Epith Cells < 1 /hpf (0-5) 07/30/18 11:18 Ur Renal Epithelial Cell < 1 /hpf (0-3) 07/30/18 11:18 Urine Opiates Screen Negative (NEGATIVE) 07/30/18 11:18 Urine Methadone Screen Negative (NEGATIVE) 07/30/18 11:18 Ur Barbiturates Screen Negative (NEGATIVE) 07/30/18 11:18 Ur Phencyclidine Scrn Negative (NEGATIVE) 07/30/18 11:18 Ur Amphetamines Screen Negative (NEGATIVE) 07/30/18 11:18 U Benzodiazepines Scrn Negative (NEGATIVE) 07/30/18 11:18 U Oth Cocaine Metabols Negative (NEGATIVE) 07/30/18 11:18 U Cannabinoids Screen Negative (NEGATIVE) 07/30/18 11:18 Alcohol, Quantitative < 10 mg/dl (0-10) 07/30/18 11:18 Discharge Exam - Head Exam Head Exam: NORMAL INSPECTION, NORMOCEPHALIC - Eye Exam Eye Exam: EOMI, Normal appearance, PERRL Pupil Exam: NORMAL ACCOMODATION - ENT Exam ENT Exam: Mucous Membranes Moist, Normal External Ear Exam - Neck Exam Neck exam: Full Rom - Respiratory Exam Respiratory Exam: NORMAL BREATHING PATTERN. absent: Respiratory Distress - Cardiovascular Exam Cardiovascular Exam: REGULAR RHYTHM, +S1, +S2 - GI/Abdominal Exam GI & Abdominal Exam: Normal Bowel Sounds, Soft. absent: Tenderness - Extremities Exam Extremities exam: normal capillary refill, pedal pulses present - Back Exam Back exam: absent: CVA tenderness (L), CVA tenderness (R) - Neurological Exam Neurological exam: Alert, CN II-XII Intact, Oriented x3, Reflexes Normal - Psychiatric Exam Psychiatric exam: Flat Affect - Skin Skin Exam: Dry, Normal Color, Warm
[2018-08-05 12:20] VITALS: BP 110/73; PULSE 93; TEMP 98.1
--- NOTE | 2018-08-05 15:55 | PN ---
Copied To: Kenzie Funez MD Attending MD: Kenzie Funez MD DATE: 08/05/2018 ENDO FOLLOWUP NOTE LOCATION: In room 418. SUBJECTIVE: This is a 28-year-old male with recent uncontrolled type 1 insulin-dependent diabetes, now being followed closely for metabolic management. His glycemic levels are fluctuating, but much improved at this time and the latest glucose levels overnight have ranged from 187 to 220 mg/dL. LABORATORY DATA: His latest chemistry showed a BUN of 3, sodium 140, potassium 3.2, chloride 102, CO2 of 32, glucose 176, and creatinine 0.6. PLAN OF MANAGEMENT: So at this time, we will continue the same modified basal and bolus insulin regimen to allow for dose equilibration and keep him on the Levemir given as 34 units subcu at bedtime daily as ordered. We will continue the Humalog given as 14 units subcu t.i.d. before meals as ordered. We will titrate incrementally as indicated to optimize metabolic control. We will follow and advise accordingly. Kenzie Funez MD
== END 2018-08-05 13:44 | disposition home or self-care (01) | DRG 295 ==
LOC: H.ER 10:21 → H.ERHOLD 12:22 → H.ICU/CCU 15:05 → H.MEDSURG1 08-02 15:44 → H.TEL 08-02 21:19
DX: E10.10 Type 1 diabetes mellitus with ketoacidosis without coma (principal); E86.0 Dehydration; E87.6 Hypokalemia; I10 Essential (primary) hypertension; J45.909 Unspecified asthma, uncomplicated; E66.01 Morbid (severe) obesity due to excess calories; Z68.41 Body mass index [BMI] 40.0-44.9, adult; Z87.891 Personal history of nicotine dependence; Z91.11 Patient's noncompliance with dietary regimen; L21.9 Seborrheic dermatitis, unspecified; F32.9 Major depressive disorder, single episode, unspecified; Z79.4 Long term (current) use of insulin; E78.5 Hyperlipidemia, unspecified; Z88.0 Allergy status to penicillin; Z91.14 Patient's other noncompliance with medication regimen

== ENCOUNTER 2018-09-23 23:06 | Emergency (ER) | payer MEDICAID ==
[2018-09-23 23:06] VITALS: BMI 47.7
--- NOTE | 2018-09-24 02:01 | ED PDOC ---
HPI: Abdomen Time Seen by Provider: 09/24/18 01:03 Chief Complaint (Nursing): GI Problem Chief Complaint (Provider): abdominal pain History Per: Patient History/Exam Limitations: no limitations Onset/Duration Of Symptoms: Days (2) Current Symptoms Are (Timing): Still Present Location Of Pain/Discomfort: Epigastric Associated Symptoms: Nausea, Vomiting Additional Complaint(s): 28 y/o male presents for evaluation of upper abdominal pain x 2 days. Describes pain as "acid/burning". Associated nausea, vomiting x 2, and intermittent palpitations. Denies fever, chest pain, shortness of breath, changes in bowel movements, urinary symptoms. Patient states he has not taken his diabetic medications in 2 days. Past Medical History Reviewed: Historical Data, Nursing Documentation, Vital Signs Vital Signs: Last Vital Signs Temp 98.0 F 09/24/18 00:00 Pulse 105 H 09/24/18 00:00 Resp 16 09/24/18 00:00 BP 137/85 09/24/18 00:00 Pulse Ox 100 09/24/18 00:00 - Medical History PMH: Asthma, Diabetes, HTN - Surgical History Surgical History: Tonsillectomy - Family History Family History: States: Unknown Family Hx - Home Medications Home Medications: Ambulatory Orders Medication Instructions Recorded MetFORMIN [glucoPHAGE] 1,000 mg PO BID 07/30/18 Metoprolol Succinate XL [Toprol XL] 50 mg PO DAILY 07/30/18 Multivitamin [Multi-Vitamin Daily] 1 tab PO DAILY 07/30/18 Paliperidone Palmitate [Invega 234 mg IM Q30D 07/30/18 Sustenna] Rosuvastatin Calcium [Crestor] 10 mg PO DAILY 07/30/18 Sertraline [Zoloft] 200 mg PO DAILY 07/30/18 SITagliptin [Januvia] 50 mg PO DAILY #30 tab 08/03/18 Bupropion HCl [Wellbutrin XL] 300 mg PO DAILY #1 t24 08/05/18 Insulin Glargine,Hum.rec.anlog 34 unit SQ HS 90 Days insuln.pen 08/05/18 [Lantus Solostar] Insulin Lispro [Humalog (Insulin 14 unit SQ AC 90 Days cartridge 08/05/18 Lispro)] Losartan [Cozaar] 25 mg PO DAILY #30 tab 08/05/18 Potassium Chloride [Klor-Con 8] 8 meq PO DAILY #7 ter 08/05/18 - Allergies Allergies/Adverse Reactions: Allergies Allergy/AdvReac Type Severity Reaction Status Date / Time Penicillins Allergy RASH Verified 09/24/18 00:00 Review of Systems ROS Statement: Except As Marked, All Systems Reviewed And Found Negative Gastrointestinal: Positive for: Nausea, Vomiting, Abdominal Pain Physical Exam - Reviewed Nursing Documentation Reviewed: Yes Vital Signs Reviewed: Yes - Physical Exam Appears: Positive for: Well, Non-toxic, No Acute Distress Head Exam: Positive for: ATRAUMATIC, NORMAL INSPECTION, NORMOCEPHALIC Skin: Positive for: Normal Color Eye Exam: Positive for: Normal appearance ENT: Positive for: Normal ENT Inspection Cardiovascular/Chest: Positive for: Regular Rate, Rhythm Respiratory: Positive for: Normal Breath Sounds Gastrointestinal/Abdominal: Positive for: Tenderness (epigastric) Back: Positive for: Normal Inspection Extremity: Positive for: Normal ROM Neurologic/Psych: Positive for: Alert, Oriented (x3) - Laboratory Results Result Diagrams: 09/24/18 02:50 09/24/18 02:50 - ECG ECG: Positive for: Viewed By Me (reviewed by ED attending) ECG Rhythm: Positive for: Sinus Rhythm O2 Sat by Pulse Oximetry: 100 - Progress ED Course And Treament: labs, IV fluids, IV insulin, ekg, abg On re-eval, patient states he is feeling better Will repeat BMP after IV fluids and PO challenge Disposition - Clinical Impression Clinical Impression: Hyperglycemia, Abdominal pain - Patient ED Disposition Is Patient to be Admitted: No - Disposition Disposition Time: 05:00 Condition: IMPROVED Patient Signed Over To: Mirtha Petersen Handoff Comments: pending repeat BMP and re-eval
[2018-09-24 02:27] LABS: ABG ALLEN TEST YES; ARTERIAL BLOOD GAS HCO3 16.6 mmol/L (21-28); ARTERIAL BLOOD GAS O2 SAT 99.6 % (95-98); ARTERIAL BLOOD GAS PCO2 28 mm/Hg (35-45); ARTERIAL BLOOD GAS PH 7.31 (7.35-7.45); ARTERIAL BLOOD GAS PO2 84 mm/Hg (80-100)
[2018-09-24] MEDS: Insulin Regular 100 units/ml IV STA (02:57)
[2018-09-24] MEDS: Sodium Chloride 0.9% 1,000 ML IV STA ×2 (02:58→03:27)
[2018-09-24 03:08] LABS: BASO # 0.1 K/uL (0.0-0.2); BASO % 1.4 % (0.0-2.0); EOS % 0.3 % (0.0-4.0); HEMOGLOBIN 15.4 g/dL (12.0-18.0); LYMPH # 2.3 K/uL (1.0-4.3); MEAN CELL VOLUME 82.7 fl (80.0-94.0); MEAN CORPUSCULAR HEMOGLOBIN 28.8 pg (27.0-31.0); MEAN CORPUSCULAR HGB CONC 34.8 g/dL (33.0-37.0); MEAN PLATELET VOLUME 8.1 fl (7.2-11.7); MONO # 0.8 K/uL (0.0-0.8); MONO % 9.2 % (0.0-10.0); NEUT # 5.3 K/uL (1.8-7.0); NEUT % 62.1 % (50.0-75.0); NRBC % 0.1 % (0.0-0.0); RBC 5.34 Mil/uL (4.40-5.90); RED CELL DISTRIBUTION WIDTH 14.5 % (11.5-14.5); WHITE BLOOD COUNT 8.5 K/uL (4.8-10.8)
[2018-09-24 03:14] LABS: ALB/GLOB RATIO 1.2 (1.0-2.1); ALBUMIN 4.4 g/dL (3.5-5.0); ALT/SGPT 19 U/L (21-72); AST/SGOT 19 U/L (17-59); BLOOD UREA NITROGEN 5 mg/dl (9-20); CALCIUM 9.5 mg/dL (8.4-10.2); GFR NON-AFRICAN AMERICAN > 60; LIPASE 96 U/L (23-300)
[2018-09-24 05:09] LABS: VENOUS BLOOD GAS BASE EXCESS -8.5 mmol/L (0.0-2.0); VENOUS BLOOD GAS PCO2 36 mmHg (40-60); VENOUS BLOOD GAS PO2 54 mm/Hg (30-55); VENOUS BLOOD PH 7.29 (7.32-7.43)
--- NOTE | 2018-09-24 05:22 | ED PDOC ---
- Laboratory Results Result Diagrams: 09/24/18 02:50 09/24/18 06:35 - ECG O2 Sat by Pulse Oximetry: 100 (RA) Pulse Ox Interpretation: Normal Medical Decision Making Medical Decision Makin Patient endorsed to me by Beatriz Ruelas PA-C pending repeat of chemistry (see if anion gap closed)and reevaluation. Scribe Attestation: Documented by Brian Liu, acting as a scribe for Mirtha Petersen MD. Provider Scribe Attestation: All medical record entries made by the Scribe were at my direction and personally dictated by me. I have reviewed the chart and agree that the record accurately reflects my personal performance of the history, physical exam, medical decision making, and the department course for this patient. I have also personally directed, reviewed, and agree with the discharge instructions and d isposition. Disposition - Clinical Impression Clinical Impression: Hyperglycemia, Gastritis - POA Present On Arrival: None - Disposition Referrals: [facility] [Outside] [facility] [Outside] [facility] [Outside] Jose Martin Chatterjee [Family Provider] - Disposition: Transfer of Care Disposition Time: 07:00 Condition: IMPROVED Prescriptions: Bupropion HCl [Wellbutrin XL] 300 mg PO DAILY #30 t24 RX: MetFORMIN [glucoPHAGE] 1,000 mg PO BID #60 tab Sertraline [Zoloft] 200 mg PO DAILY #60 tab Instructions: Gastritis, The ABCs of Diabetes Forms: [facility] (Syriac) Print Language: SLOVENIAN Patient Signed Over To: Unique Staton
[2018-09-24 06:00] LABS: URINE BILIRUBIN NEGATIVE (NEGATIVE); URINE BLOOD NEGATIVE (NEGATIVE); URINE CLARITY CLEAR (Clear); URINE COLOR COLORLESS (YELLOW); URINE GLUCOSE (UA) >=500 mg/dL (Normal); URINE LEUKOCYTE ESTERASE NEG Leu/uL (Negative); URINE PROTEIN NEGATIVE (NEGATIVE); URINE UROBILINOGEN 0.2-1.0 mg/dL (0.2-1.0)
[2018-09-24 07:41] LABS: BLOOD UREA NITROGEN 3 mg/dl (9-20); CALCIUM 8.7 mg/dL (8.4-10.2); GFR NON-AFRICAN AMERICAN > 60
--- NOTE | 2018-09-24 09:17 | ED PDOC ---
- Laboratory Results Result Diagrams: 09/24/18 02:50 09/24/18 06:35 - ECG O2 Sat by Pulse Oximetry: 95 Medical Decision Making Medical Decision Making: received patient from Dr. Petersen. Patient is know diabetic with mental illness. Has been homeless for 1-2 months and has not been to Dr. Chatterjee for followup. His grandmother is homeless with him as well but she appears to be able to take care of him. Disposition Doctor Will See Patient In The: Office Counseled Patient/Family Regarding: Diagnosis, Need For Followup, Rx Given - Clinical Impression Clinical Impression: Hyperglycemia, Gastritis - POA Present On Arrival: None - Disposition Referrals: Jose Martin Chatterjee [Family Provider] - [facility] [Outside] [facility] [Outside] [facility] [Outside] Disposition: Routine/Home Disposition Time: 09:00 Condition: IMPROVED Prescriptions: Bupropion HCl [Wellbutrin XL] 300 mg PO DAILY #30 t24 MetFORMIN [glucoPHAGE] 1,000 mg PO BID #60 tab Sertraline [Zoloft] 200 mg PO DAILY #60 tab Instructions: Gastritis, The ABCs of Diabetes Forms: [facility] (Eth[place]ian) Print Language: CHINESE
[2018-09-24 10:35] VITALS: BP 123/71; PULSE 87; RESP 18; TEMP 98
--- NOTE | 2018-09-24 19:12 | CARD ---
APPROVED REPORT Date of service: 09/24/2018 EKG Measurement Heart [id number] <Conclusion> Normal sinus rhythm Normal ECG
[2018-09-25 09:03] VITALS: O2SAT 100
== END 2018-09-24 10:00 | disposition home or self-care (01) ==
LOC: H.ER 23:06
DX: E11.65 Type 2 diabetes mellitus with hyperglycemia (principal); K29.70 Gastritis, unspecified, without bleeding; I10 Essential (primary) hypertension; Z79.4 Long term (current) use of insulin; Z88.0 Allergy status to penicillin
CPT/HCPCS: 36600; 80048; 80053; 81003; 82803; 82948; 83690; 84443; 85025; 93005; 96374; 96375; 99283; J2765; J7030